=== PATIENT | female | born 1965 | race Caucasian/White ===

== ENCOUNTER → 2020-07-29 08:08 | Outpatient (CLI) | payer OTHER, SELFPAY ==
[2020-07-29] MEDS: COVID-19 VACC, Ad26(JANSSEN)/PF 0.5 ML IM (08:18)
== END ==
PROVIDERS: PCP Family Medicine; Visit Provider Internal Medicine
DX: Z23 Encounter for immunization (principal)
CPT/HCPCS: 0031A; 91303

== ENCOUNTER → 2021-01-26 09:13 | Outpatient (CLI) | payer OTHER, SELFPAY ==
[2021-01-26 10:20] LABS: Alanine Aminotransferase 20 IU/L (<35); Albumin 4.4 g/dL (3.5-5.0); Albumin Globulin Ratio 1.3 (1.0-2.8); Alkaline Phosphatase 84 U/L (38-126); Aspartate Aminotransferase 24 IU/L (14-36); BUN Creatinine Ratio 14.9 (6-22); Bilirubin Total 0.8 mg/dL (0.2-1.3); Blood Urea Nitrogen 13 mg/dL (7-17); Calcium 9.8 mg/dL (8.4-10.2); Carbon Dioxide 32 mmol/L (22-32); Chloride 100 mmol/L (98-107); Cholesterol 170 mg/dL (140-199); Estimated Glomerular Filt Rate > 60.0 mL/min (>60); Globulin 3.3 g/dL (1.7-4.1); Glucose 129 mg/dL (70-100); HDL Cholesterol 35 mg/dL (40-60); HEMOLYSIS < 15 (0-50); LDL Cholesterol Calculated 109 mg/dL (<100); Sodium 140 mmol/L (137-145); Total Protein 7.7 g/dL (6.3-8.2); Triglycerides 129 mg/dL (35-150)
[2021-01-26 10:31] LABS: Creatinine Urine Random 171.4 mg/dL
[2021-01-26 10:36] LABS: Microalbumi Creatinin Ratio Ur 22.1 ug/mg CR (<30); Microalbumin Urine Random 3.8 mg/dL (0-1.6)
[2021-01-26 10:47] LABS: Thyroid Stimulating Hormone 3.87 uIU/mL (0.47-4.68)
== END ==
PROVIDERS: PCP Family Medicine; Referring Provider Family Medicine; Visit Provider Family Medicine
DX: I10 Essential (primary) hypertension (principal); E03.9 Hypothyroidism, unspecified
CPT/HCPCS: 36415; 80053; 80061; 82043; 82570; 84443

== ENCOUNTER → 2023-02-02 14:42 | Outpatient (CLI) | payer OTHER, SELFPAY ==
--- NOTE | 2023-02-02 14:43 | DI.US.S_ITS ---
PROCEDURE: US PELVIC COMPLETE INDICATIONS: POSTMENOPAUSAL BLEEDING TECHNIQUE: Real-time scanning was performed of the pelvic organs, with image documentation. Additional endovaginal scanning was necessary due to incomplete visualization of the adnexal and endometrial structures by transabdominal scanning. COMPARISON: None. FINDINGS: Uterus: Uterus is anteverted and normal in size at 10.8 x 7.6 x 6.7 cm. The myometrium is homogeneous. The endometrium measures 26 mm combined thickness. Mid anterior intramural fibroid measuring at 0.9 x 0.7 x 0.5 cm. Mid anterior intramural fibroid measuring 1.9 x 1.9 x 1.9 cm. Small nabothian cysts. Ovaries: Ovaries are not seen. Other: No pathologic free abdominal or pelvic fluid. IMPRESSION: 1. Thickened endometrium measuring 26 mm. Recommend endometrial biopsy if not yet performed in this postmenopausal patient with bleeding. 2. Small uterine fibroids x2. We strive to produce accurate, complete, and clear reports of imaging services. To assist us in improving patient care, this report was composed using standard report templates and voice recognition software. Therefore, it may contain abnormal punctuation, insertions and/or omissions. Occasional wrong-word or sound-alike substitutions may occur. Though we review the report and make efforts to correct it, we do recommend that the report be read carefully in proper context to recognize any text inaccuracies. Dictated by: Sonu Lemons M.D. on 02/02/2023 at 16:11 Approved by: Sonu Lemons M.D. on 02/02/2023 at 16:21
== END ==
PROVIDERS: PCP Family Medicine; Referring Provider Family Medicine; Visit Provider Family Medicine
DX: N95.0 Postmenopausal bleeding (principal); D25.1 Intramural leiomyoma of uterus; R93.89 Abnormal findings on diagnostic imaging of other specified body structures
CPT/HCPCS: 76830; 76856

== ENCOUNTER → 2023-04-04 10:24 | Outpatient (CLI) | payer OTHER, SELFPAY ==
--- NOTE | 2023-04-04 | DI.CT.S_ITS ---
PROCEDURE: CT ANGIO CHEST PE PROTOCOL INDICATIONS: PULMONARY EMBOLISM/AFIB TECHNIQUE: After the administration of intravenous contrast, 2 mm thick sections acquired from the pulmonary apices to the posterior costophrenic angles. 3-dimensional maximum intensity projection (MIP) coronal and sagittal reformats were then acquired through the thorax. For radiation dose reduction, the following was used: automated exposure control, adjustment of mA and/or kV according to patient size. COMPARISON: [facility], CT, CT ANGIO CHEST PE, 03/09/2023, 8:23. FINDINGS: Image quality: Diagnostic. Pulmonary arteries: There was previous extensive PE, including large right main pulmonary artery embolus extending into the right upper lobe and right lower lobe and segmental right basilar pulmonary arteries, as well as mild distal left main pulmonary artery embolus extending into lower lobe basal segments. The right main pulmonary artery thrombus as not completely resolved. There is still occlusion of the right upper lobe pulmonary artery. The portion of the right main pulmonary artery which becomes the inter lobar pulmonary artery has recanalized. The inter lobar pulmonary artery and right lower lobe pulmonary artery are now patent. There is minimal right posterior basal segment nonocclusive pulmonary embolus. The left-sided pulmonary emboli have resolved. 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 There is a residual peripheral wedge-shaped filling defect present which is much smaller than the area of consolidation previously. The lungs are otherwise clear. No pleural effusions or pneumothorax. Central and peripheral airways are patent. Mediastinum: Borderline cardiomegaly, without pericardial effusion. No mediastinal or hilar adenopathy. Thoracic aorta is normal in caliber and enhancement. Esophagus is normal in caliber, without hiatal hernia. Bones and chest wall: No suspicious bony lesions. Ribs and thoracic spine appear intact throughout. No axillary or supraclavicular adenopathy. No thyroid nodules which require sonographic follow up, per consensus guidelines. Upper Abdomen: Visualized upper abdominal solid organs appear normal in the early arterial phase of enhancement. IMPRESSION: 1. Significant interval improvement in overall clot burden. There is continued right main pulmonary arterial clot which extends into the right upper lobe pulmonary artery, continuing to occlude the right upper lobe pulmonary artery. There is patency in the right main pulmonary artery regarding the portion that extends to become the right inter lobar pulmonary artery. The inter lobar pulmonary artery and lower lobe pulmonary arterial clot has resolved. There is minimal residual posterior basal segment pulmonary artery clot. The left-sided clot has resolved. 2. Significant interval decrease in size of which shaped consolidation in the right apex consistent with evolution of pulmonary infarct. Dictated by: Daryl Cruz M.D. on 04/04/2023 at 12:22 Approved by: Daryl Cruz M.D. on 04/04/2023 at 12:32
== END ==
PROVIDERS: PCP Family Medicine; Referring Provider Family Medicine; Visit Provider Family Medicine
DX: I26.02 Saddle embolus of pulmonary artery with acute cor pulmonale (principal); I48.19 Other persistent atrial fibrillation
CPT/HCPCS: 71275; Q9967

== ENCOUNTER 2023-04-05 14:35 | Emergency (ER) | payer OTHER, SELFPAY ==
[2023-04-05] VITALS (8 sets, daily range): BP systolic 102–125; BP diastolic 59–82; PULSE 95–115; RESP 24; TEMP 36.6; O2SAT 98–100; BMI 75.2
--- NOTE | 2023-04-05 15:18 | ED.FEMALEGU ---
HPI - Female Genitourinary General Chief complaint: Vaginal Bleeding Stated complaint: sent by [facility]/postmenopausal bleeding/low BP Time Seen by Provider: 04/05/23 15:05 Source: patient Mode of arrival: Wheelchair History of Present Illness HPI Narrative: 58-year-old female history of morbid obesity, recent diagnosis of bilateral pulmonary emboli, atrial fibrillation postmenopausal bleeding presenting today with increased fatigue and weakness. She was admitted at [facility] March 03 -03/11 with increasing weakness and nausea after COVID infection. She was found to have significant burden of pulmonary embolus involving all 5 lobes of her along and right heart strain. She was discharged home on warfarin and ultimately transitioned to Eliquis by Cardiology. She continues to have vaginal bleeding and reports she sometimes has clots excise but not all the time. She has had ongoing vaginal bleeding for months bleeding has gotten worse since she started anticoagulation. She is scheduled to have D and C and hysteroscopy tomorrow with Dr. Maddox. She is previously had an endometrial biopsy which was nondiagnostic. She was instructed to continue her Eliquis. She has not noticed significant increase in vaginal bleeding there has not been significant pain or change in regards to that. She actually reports that she has proving last week she is being followed by Physical therapy in fact they gave her more exercises to do. However this week she is just had increased fatigue and not feeling very well. She occasionally has some chest discomfort but not as bad as it was she is not having any worsening or new shortness of breath. She is not had any fever. Related Data Home Medications Medication Instructions Recorded Confirmed apixaban 5 mg tablet (Eliquis) 5 mg PO BID 04/03/23 04/03/23 furosemide 40 mg tablet 40 mg PO DAILY 04/03/23 04/03/23 metoprolol succinate 50 mg 50 mg PO DAILY 04/03/23 04/03/23 tablet,extended release 24 hr Previous Rx's Medication Instructions Recorded levothyroxine 112 mcg tablet See Rx Instructions .Route 01/16/23 .COMPLEX #90 tabs omeprazole 20 mg capsule,delayed See Rx Instructions .Route 01/16/23 release .COMPLEX #90 caps losartan 50 mg tablet See Rx Instructions .Route 04/02/23 .COMPLEX #90 tabs nitrofurantoin 100 mg PO Q12H 5 days #10 caps 12/14/23 monohydrate/macrocrystals 100 mg capsule (Macrobid) Allergies Allergy/AdvReac Type Severity Reaction Status Date / Time Penicillins [PENICILLINS] Allergy Unknown Verified 03/26/23 11:29 Patient History Medical History (Updated 04/05/23 @ 18:39 by Nicol Segal DO) BMI 70 and over, adult Multiple pulmonary emboli (03/03/23) Pre-diabetes Depression Essential hypertension (06/25/16) Acquired hypothyroidism (01/10/17) Surgical History (Updated 08/21/17 @ 06:09 by Conversion Provider) Status post tonsillectomy and adenoidectomy Family History (Updated 06/20/15 @ 00:00 by Conversion Provider) Brother Age: 71 Frontal lobe dementia Mental health problem Depression Father Heart disease Alcoholic Grandfather Cancer Mother Age: 90 Hypertension Sister Cancer alcohol intake frequency: holidays/special occasions only Substance Use Type: does not use Exam Initial Vital Signs Initial Vital Signs: Vital Signs Temperature 98 F 04/05/23 14:40 Pulse Rate 115 H 04/05/23 14:40 Respiratory Rate 24 04/05/23 14:40 Blood Pressure 125/82 04/05/23 14:40 Pulse Oximetry 100 04/05/23 14:40 Oxygen Delivery Method Room Air 04/05/23 14:40 GENERAL: Alert pleasant 58-year-old female BMI 75 HEENT: Head atraumatic,EOMI, pupils reactive, face symmetric, moist mucous membranes CARDIOVASCULAR: Regular rate and rhythm without murmurs, rubs or gallops. RESPIRATORY: Breath sounds equal bilaterally, no wheezes rales or rhonchi. ABDOMEN: Soft, nontender. Normoactive bowel sounds all 4 quadrants. No guarding or rebound. EXTREMITIES: Normal range of motion, no clubbing or edema. Neurovascularly intact NEUROLOGICAL: Alert and oriented x4.Normal gait and speech. SKIN: Warm, dry, no laceration, no petechiae, no rashes or lesions. Course Orders Ordered: ED Orders 04/05/23 15:15 Basic Metabolic Panel Stat Complete Blood Count AUTO DIFF Stat Lactate (Lactic Acid) Stat Type and Screen Stat 04/05/23 16:23 UA dip and micro [Urinalysis and Microscopic] Stat Urine Culture Stat 04/05/23 18:02 EKG-12 Lead Stat Discontinued Medications Sodium Chloride (Normal Saline 0.9%) 1,000 mls @ 1,000 mls/hr IV BOLUS ONE Stop: 04/05/23 18:30 Last Infusion: 04/05/23 18:51 Dose: Infused Documented By: Admin: 04/05/23 17:47 Dose: 1,000 mls/hr Documented By: RED Ceftriaxone Sodium 1,000 mg/ (Sodium Chloride) 100 mls @ 200 mls/hr IV NOW ONE Stop: 04/05/23 17:32 Last Infusion: 04/05/23 18:26 Dose: Infused Documented By: Admin: 04/05/23 17:47 Dose: 200 mls/hr Documented By: RED Vital Signs Vital signs: Vital Signs - 8 hr 04/05/23 14:40 04/05/23 15:42 04/05/23 15:42 Temperature 98 F Pulse Rate 115 H 96 H Respiratory Rate 24 Blood Pressure 125/82 110/66 Pulse Oximetry 100 99 Oxygen Delivery Method Room Air 04/05/23 16:00 04/05/23 16:00 04/05/23 16:30 Temperature Pulse Rate 95 H 106 H Respiratory Rate Blood Pressure 111/78 Pulse Oximetry 100 100 Oxygen Delivery Method 04/05/23 16:53 04/05/23 16:53 04/05/23 17:00 Temperature Pulse Rate 109 H 112 H Respiratory Rate Blood Pressure 116/69 Pulse Oximetry 98 100 Oxygen Delivery Method 04/05/23 17:30 04/05/23 18:52 Temperature Pulse Rate 95 H Respiratory Rate Blood Pressure 102/59 L Pulse Oximetry 100 Oxygen Delivery Method MDM - Female Genitourinary Lab Data 04/05/23 15:15 04/05/23 15:15 Labs: Lab Results 04/05/23 04/05/23 Range/Units 15:15 16:23 WBC 7.0 (4.5-11.0) X10^3/uL RBC 4.63 (4.0-5.2) X10^6/uL Hgb 13.4 (12.0-16.0) g/dL Hct 40.4 (36-46) % MCV 87.4 (80-100) fL MCH 28.9 (26-34) PG MCHC 33.1 (30-36) % RDW 16.0 H (11.6-14.8) % Plt Count 279 (150-400) X10^3/uL Neut % (Auto) 80.3 H (50-75) % Lymph % (Auto) 8.5 L (25-40) % Vigo % (Auto) 6.8 (3-14) % Eos % (Auto) 3.7 (2-4) % Baso % (Auto) 0.7 (0-2) % Neut # (Auto) 5600 (2752-8478) /uL Lymph # (Auto) 600 L (3476-6713) /uL Vigo # (Auto) 500 (0-900) /uL Eos # (Auto) 300 (0-450) /uL Baso # (Auto) 100 (0-100) /uL Sodium 135 L (137-145) mmol/L Potassium 3.3 L (3.4-5.1) mmol/L Chloride 101 (98-107) mmol/L Carbon Dioxide 24 (22-32) mmol/L BUN 12 (7-17) mg/dL Creatinine 0.82 (0.52-1.04) mg/dL Estimated GFR > 60 (>60) mL/min BUN/Creatinine Ratio 14.6 (6-22) Glucose 98 (70-100) mg/dL Lactate 2.0 (0.7-2.1) mmol/L Calcium 9.7 (8.4-10.2) mg/dL Urine Color Red Urine Appearance Cloudy Urine pH 7.0 (4.5-8.0) Ur Specific Adair <=1.005 (1.000-1.035) Urine Protein 2+ H (Negative) Urine Glucose (UA) Negative (Negative) g/dL Urine Ketones Negative (NEGATIVE) Urine Occult Blood 3+ H (Negative) Urine Nitrate Positive H (Negative) Urine Bilirubin 1+ H (NEGATIVE) Ur Bilirubin Confirm Cancelled Urine Urobilinogen 1.0 (0.2) E.U./dL Ur Leukocyte Esterase Trace H (NEGATIVE) Urine RBC >100/hpf H (0-5/HPF) Urine WBC 1-5/hpf (0-5/HPF) Ur Squamous Epith Cells 1-5 /hpf (0-5/HPF) Urine Bacteria Few (2-10) H (None) Ur Culture Indicated? Specimen cultured Blood Type A Positive Antibody Screen Negative ECG Data Interpretation: Atrial fibrillation no ST changes no priors to compare, rate 90 MDM Narrative Medical decision making narrative: Patient 58-year-old female with ongoing vaginal bleeding recently started on anticoagulation secondary to atrial fibrillation and pulmonary embolism presents today with increased fatigue weakness and dizziness. She does not report heavy vaginal bleeding but does have large clots times. Blood work reviewed no evidence of leukocytosis or anemia, she has mild hypokalemia 3.3 but no significant LUPE She reports that she is taking Lasix once daily she is not sure why. She had an echocardiogram when she was admitted at [facility] no one has taken her off Lasix. Though her blood work does not show dehydration she may be mildly dehydrated. She is found to have nitrates in her urine which may be contributing to her fatigue. How she ever she is afebrile without leukocytosis no sign of severe infection. She has chronic ongoing vaginal bleeding without significant increase in bleeding. She has a D&C hysteroscopy scheduled for tomorrow she is already had an endometrial biopsy. No need for any further pelvic ultrasound at this time. CT angio done yesterday shows improvement in overall burden. Discharge Plan Departure Patient Disposition: Home Clinical Impression: UTI (urinary tract infection) Instructions: DI for Urinary Tract Infection (UTI) Activity Restrictions/Additional Instructions: *You have been diagnosed with UTI *What to do: At this time no need for blood transfusion blood work is overall reassuring. *Continue to take medications as directed Macrobid 100 mg twice a day for 5 days--> [facility] *Follow up with your primary care provider in 2-3 days or call [phone] Follow-up with Dr. Maddox as scheduled tomorrow please follow instructions *Return to ER if you should have increasing dizziness chest pain palpitations passing or any new, worsening or concerning symptoms Prescriptions: New nitrofurantoin monohyd/m-cryst [Macrobid] 100 mg capsule 100 mg PO Q12H 5 Days Qty: 10 0RF Rx Instructions: must administer with a meal/food No Action levothyroxine 112 mcg tablet See Rx Instructions .ROUTE .COMPLEX Qty: 90 0RF Dose Instruction: take 1 tablet by mouth once daily Rx Instructions: take 1 tablet by mouth once daily omeprazole 20 mg capsule,delayed release(DR/EC) See Rx Instructions .ROUTE .COMPLEX Qty: 90 0RF Dose Instruction: take 1 capsule by mouth once daily Patient Comments: Pt states she takes PRN Rx Instructions: take 1 capsule by mouth once daily losartan 50 mg tablet See Rx Instructions .ROUTE .COMPLEX Qty: 90 0RF Dose Instruction: take 1 tablet by mouth once daily Rx Instructions: take 1 tablet by mouth once daily metoprolol succinate 50 mg Tablet Extended Release 24 Hr 50 mg PO DAILY Eliquis 5 mg Tablet 5 mg PO BID furosemide 40 mg Tablet 40 mg PO DAILY Referrals: Priya Gordon MD [Primary Care Provider] - Stand Alone Forms: Patient Portal/API
[2023-04-05 15:38] LABS: Add Manual Diff / Slide Review NO; Basophils Absolute Auto 100 /uL (0-100); Basophils Percent Auto 0.7 % (0-2); Eosinophils Absolute Auto 300 /uL (0-450); Eosinophils Percent Auto 3.7 % (2-4); Hematocrit 40.4 % (36-46); Hemoglobin 13.4 g/dL (12.0-16.0); Lymphocytes Absolute Auto 600 /uL (1100-4500); Lymphocytes Percent Auto 8.5 % (25-40); Mean Corpuscular HGB Conc 33.1 % (30-36); Mean Corpuscular Hemoglobin 28.9 PG (26-34); Mean Corpuscular Volume 87.4 fL (80-100); Monocytes Absolute Auto 500 /uL (0-900); Monocytes Percent Auto 6.8 % (3-14); Neutrophils Absolute Auto 5600 /uL (1500-7000); Neutrophils Percent Auto 80.3 % (50-75); Platelet Count 279 X10^3/uL (150-400); Red Blood Cell Count 4.63 X10^6/uL (4.0-5.2)
[2023-04-05 15:51] LABS: BUN Creatinine Ratio 14.6 (6-22); Blood Urea Nitrogen 12 mg/dL (7-17); Calcium 9.7 mg/dL (8.4-10.2); Carbon Dioxide 24 mmol/L (22-32); Chloride 101 mmol/L (98-107); Estimated Glomerular Filt Rate > 60 mL/min (>60); Glucose 98 mg/dL (70-100); HEMOLYSIS < 15 (0-50); Potassium 3.3 mmol/L (3.4-5.1); Sodium 135 mmol/L (137-145)
[2023-04-05 16:44] LABS: Appearance Urine UA CLOUDY; Color Urine UA RED; Glucose Urine UA NEGATIVE (Negative); Ketones Urine UA NEGATIVE (NEGATIVE); Leukocyte Esterase Urine UA TRACE (NEGATIVE); Nitrite Urine UA POSITIVE (Negative); Occult Blood Urine UA 3+ (Negative); Protein Urine UA 2+ (Negative); Specific Gravity Urine UA <=1.005 (1.000-1.035)
[2023-04-05 17:27] LABS: Bacteria Urine Few (2-10); Culture Indicated Urine Specimen Cultured; RBC Urine >100/HPF (0-5/HPF); Squamous Epithelial Cell Urine 1-5 /HPF (0-5/HPF); WBC Urine 1-5/HPF (0-5/HPF)
[2023-04-05 17:28] LABS: Bilirubin Urine UA 1+ (NEGATIVE)
[2023-04-05] MEDS: cefTRIAXone 1,000 MG in SODIUM CHLORIDE 0.9% 100 ML 200 MG IV (17:47)
[2023-04-05] MEDS: SODIUM CHLORIDE 0.9% 1,000 ML 1000 ML IV (17:47)
== END 2023-04-05 18:53 | disposition home or self-care (01) ==
PROVIDERS: Emergency Provider Emergency Medicine; PCP Family Medicine
DX: N39.0 Urinary tract infection, site not specified (principal); I48.91 Unspecified atrial fibrillation; Z79.01 Long term (current) use of anticoagulants
CPT/HCPCS: 36415; 80048; 81001; 83605; 85025; 86850; 86900; 86901; 87077; 87086; 87186; 93005; 93010; 96361; 96374; 99284; J0696

== ENCOUNTER 2023-04-06 09:54 | Day surgery (SDC) | payer OTHER, SELFPAY ==
[2023-04-03 10:46] VITALS: BMI 72.5
--- NOTE | 2023-04-06 | PATH_ITS ---
[facility] Accession Number: [id number] No. of containers..01 Tissue . 01 Material submitted: . endometrium - ENDOMETRIAL CURETTINGS . 01 Diagnosis: Endometrium, Curettage: Predominantly blood clot. Fragments of endometrial polyp. Few fragments of dyssynchronous endometrium (weakly proliferative with stromal condensation). Strips of benign endocervical and squamous epithelium also present. No neoplasm identified. MRV 04/17/2023 1428 Local . 01 Electronically signed: . Jesus Lai MD, PhD, Pathologist NPI- [id number] . 01 Gross description: . The specimen is received in formalin, labeled with the patient's name, , and endometrial curettings, and consists of multiple fragments of red-brown hemorrhagic material with minimal soft tissue grossly identified, aggregating to 6.2 x 3.7 x 3.2 cm. The specimen is filtered and submitted entirely in cassettes A1-A20. ([id number]) /FRR 04/11/2023 0407 Local . 01 Pathologist provided ICD-10: N95.0, N84.1 . 01 CPT . 213850 Specimen Comment: A courtesy copy of this report has been sent to [phone] Performed at: 01 [facility] [address] [place] [address] [address], [place], [place] [id number] MD Usman Carvalho MD Phone: [phone]
--- NOTE | 2023-04-06 08:04 | P.HPOB_ITS ---
History of Present Illness History of Present Illness Reason for admission: vaginal bleeding Narrative: Nat Whelan is a 58 year old female 1 para 1 who presents for a D&C. Patient has started bleeding in December. She had an ultrasound on February 02, 2023. This showed a 26 mm endometrial lining and 2 small fibroids. She was scheduled for a D&C. She then developed COVID. The surgery was postponed. She then had a PE in early February. Initially she was placed on warfarin. She was then switched to Eliquis and the bleeding became heavier. She was seen in the emergency department yesterday for feeling faint. They thought that she was dehydrated. Her hematocrit was 40. [facility] Medical History (Updated 04/05/23 @ 18:39 by Nicol Segal DO) BMI 70 and over, adult Multiple pulmonary emboli (03/03/23) Pre-diabetes Depression Essential hypertension (06/25/16) Acquired hypothyroidism (01/10/17) Surgical History (Updated 08/21/17 @ 06:09 by Conversion Provider) Status post tonsillectomy and adenoidectomy Family History (Updated 06/20/15 @ 00:00 by Conversion Provider) Brother Age: 71 Frontal lobe dementia Mental health problem Depression Father Heart disease Alcoholic Grandfather Cancer Mother Age: 90 Hypertension Sister Cancer Social History household members: spouse Smoking Status: Never smoker Meds Home Medications and Allergies Home Medications Medication Instructions Recorded Confirmed Type levothyroxine 112 mcg tablet See Rx Instructions .Route 01/16/23 04/03/23 Rx .COMPLEX #90 tabs omeprazole 20 mg capsule,delayed See Rx Instructions .Route 01/16/23 04/03/23 Rx release .COMPLEX #90 caps losartan 50 mg tablet See Rx Instructions .Route 04/02/23 04/03/23 Rx .COMPLEX #90 tabs apixaban 5 mg tablet (Eliquis) 5 mg PO BID 04/03/23 04/06/23 History furosemide 40 mg tablet 40 mg PO DAILY 04/03/23 04/03/23 History metoprolol succinate 50 mg 50 mg PO DAILY 04/03/23 04/03/23 History tablet,extended release 24 hr nitrofurantoin 100 mg PO Q12H 5 days #10 caps 04/05/23 Rx monohydrate/macrocrystals 100 mg capsule (Macrobid) Allergies Allergy/AdvReac Type Severity Reaction Status Date / Time Penicillins [PENICILLINS] Allergy Unknown Verified 04/06/23 10:28 Exam Narrative Exam Narrative: Generally: Morbidly obese female, sitting on the gurney, no acute distress. She does have oxygen per nasal cannula in place. Lungs: Clear to auscultation bilaterally Cardiovascular: Regular rate and rhythm Assessment & Plan Assessment & Plan narrative: Assessment: 58-year-old 1 para 1 with postmenopausal bleeding, worsened on Eliquis Active PE Plan: D&C under paracervical block and sedation The risks, benefits, and alternatives to the procedure were explained to the patient. The risks including bleeding, infection, and uterine perforation. She understands these risks and agrees to proceed. A full par Q was held and consent form was signed.
[2023-04-06 10:31] VITALS: BP 150/84; PULSE 112; RESP 16; TEMP 36.2; O2SAT 98; BMI 72.5
[2023-04-06] MEDS: LACTATED RINGERS 1,000 ML 42 ML IV (10:47)
--- NOTE | 2023-04-06 11:33 | PM.PREOP ---
Pre-operative Note Interval Note History & Physical reviewed/Exam performed by Physician: Yes Changes to H&P: No H&P completed within 30 days and has changed as indicated here:: 04/06/23
--- NOTE | 2023-04-06 11:57 | SUR.OPER ---
Lithotomy on padded OR bed, head on pillow, arms secured on padded arm boards at <90 degrees abduction. Legs secured in padded yellow fins stirrups. Table extenders used and foam wedge at torso per anesthesia.
[2023-04-06] MEDS: LIDOCAINE 1% 20 ML INJ (12:02)
--- NOTE | 2023-04-06 12:08 | P.OP_ITS ---
Operative Date/Time/Diagnoses Date of procedure: 04/06/23 Time of procedure: 12:08 Pre-op diagnosis: CHECKER DUMP GROUNDS bleeding Post-op diagnosis: same Procedure & Clinicians Procedure: Procedures Operation Date: 04/06/23 11:15 Actual Procedure Side Surgeon maegan Maddox MD Indications: 58 year old with CHECKER DUMP GROUNDS bleeding, worsening on blood thinners Patient changing a pad every hour 26 mm endometrial lining Active PE Surgeon: Nellie Maddox Anesthesia Type: Sedation and Other (Paracervical block) Operative Notes Findings: 10 wk size anteverted uterus Large amount of clot in the uterus Closure Type: not applicable Specimen(s): endometrial curettings Estimated blood loss (mL): 100 Blood products transfused: none Procedure in detail: after informed consent was obtained, the patient was taken to the operating room where she was placed in the dorsal supine position. She was then placed in the dorsal lithotomy position with elevated head, and prepped and draped in the usual sterile fashion. IV sedation was given. A bivalve speculum was placed into the vagina and the anterior lip of the cervix was grasped with a single- tooth tenaculum. a large amount of old clot came out of the cervical os. Using 10 cc of 1% lidocaine, a paracervical block was performed. The cervical os was dilated to the #8 Hegar dilator. The # 6 Plastic curette passed easily into the endometrial cavity. Several passes revealed minimal amount of blood. the curette was being blocked by large clots. The plastic curette was changed to the #10 curved curette. Several passes with suction revealed a large amount of clot and tissue. Gentle sharp curettage was performed yielding moderate amount of tissue. Several more passes with suction revealed small amount of blood only. The instruments were removed from the uterus. The single-tooth tenaculum was removed from the anterior lip of the cervix. The bivalve speculum was removed from the vagina. Sponge, lap, and instrument counts were correct x2. The patient tolerated the procedure well, and was taken to PACU in stable condition. Complications: none Post-operative Condition: stable Disposition: PACU Plan for aftercare: Home after recovery
[2023-04-06 12:11] VITALS: BP 89/53; PULSE 105; RESP 11; TEMP 36.6; O2SAT 100
[2023-04-06 12:15] VITALS: BP 96/62; PULSE 106; RESP 21; O2SAT 99
[2023-04-06 12:20] VITALS: BP 96/64; PULSE 103; RESP 15; O2SAT 98
[2023-04-06 12:30] VITALS: BP 103/69; PULSE 98; RESP 16; O2SAT 100
[2023-04-06 12:38] VITALS: BP 105/74; PULSE 105; RESP 16; O2SAT 97
== END 2023-04-06 12:45 | disposition home or self-care (01) ==
PROVIDERS: PCP Family Medicine; Referring Provider Obstetrics & Gynecology; Visit Provider Obstetrics & Gynecology
PROC: 0UDB8ZZ Extraction of Endometrium, Via Natural or Artificial Opening Endoscopic (ICD-10-PCS; CPT 58558; principal; 2023-04-06 11:15)
DX: N95.0 Postmenopausal bleeding (principal); N84.0 Polyp of corpus uteri
CPT/HCPCS: 58120; J2250

== ENCOUNTER → 2023-04-25 10:53 | Outpatient (CLI) | payer OTHER, SELFPAY ==
[2023-04-25 11:54] LABS: Appearance Urine UA CLEAR; Bilirubin Urine UA NEGATIVE (NEGATIVE); Color Urine UA YELLOW; Glucose Urine UA NEGATIVE (Negative); Ketones Urine UA NEGATIVE (NEGATIVE); Leukocyte Esterase Urine UA NEGATIVE (NEGATIVE); Nitrite Urine UA NEGATIVE (Negative); Occult Blood Urine UA 3+ (Negative); Protein Urine UA NEGATIVE (Negative); Urobilinogen Urine UA 0.2 E.U./dL (0.2)
[2023-04-25 11:58] LABS: pH Urine UA 5.5 (4.5-8.0)
[2023-04-25 11:59] LABS: Bacteria Urine None Seen; RBC Urine 5-10/HPF (0-5/HPF); Squamous Epithelial Cell Urine None Seen (0-5/HPF); WBC Urine None Seen (0-5/HPF)
[2023-04-25 12:00] LABS: Culture Indicated Urine Cult Not Indicated
[2023-04-25 12:01] LABS: Hemoglobin A1C% w Est Avg Glu 4.9 % (4.0-6.0)
[2023-04-25 12:13] LABS: Add Manual Diff / Slide Review NO; Basophils Absolute Auto 100 /uL (0-100); Eosinophils Absolute Auto 100 /uL (0-450); Eosinophils Percent Auto 2.1 % (2-4); Hemoglobin 12.8 g/dL (12.0-16.0); Lymphocytes Absolute Auto 1200 /uL (1100-4500); Lymphocytes Percent Auto 17.1 % (25-40); Mean Corpuscular HGB Conc 32.9 % (30-36); Mean Corpuscular Hemoglobin 28.7 PG (26-34); Mean Corpuscular Volume 87.5 fL (80-100); Monocytes Absolute Auto 500 /uL (0-900); Monocytes Percent Auto 7.3 % (3-14); Neutrophils Absolute Auto 5000 /uL (1500-7000); Neutrophils Percent Auto 72.5 % (50-75); Platelet Count 333 X10^3/uL (150-400); Red Blood Cell Count 4.46 X10^6/uL (4.0-5.2); Red Cell Distribution Width 16.2 % (11.6-14.8); White Blood Cell Count 6.9 X10^3/uL (4.5-11.0)
[2023-04-25 12:19] LABS: Alanine Aminotransferase 23 IU/L (<35); Albumin Globulin Ratio 1.1 (1.0-2.8); Alkaline Phosphatase 85 U/L (38-126); BUN Creatinine Ratio 12.5 (6-22); Bilirubin Total 1.3 mg/dL (0.2-1.3); Blood Urea Nitrogen 11 mg/dL (7-17); Carbon Dioxide 27 mmol/L (22-32); Chloride 101 mmol/L (98-107); Cholesterol 164 mg/dL (140-199); Estimated Glomerular Filt Rate > 60 mL/min (>60); Globulin 3.7 g/dL (1.7-4.1); Glucose 114 mg/dL (70-100); HDL Cholesterol 31 mg/dL (40-60); HEMOLYSIS < 15 (0-50); LDL Cholesterol Calculated 107 mg/dL (<100); Sodium 137 mmol/L (137-145); Total Protein 7.7 g/dL (6.3-8.2); Triglycerides 130 mg/dL (35-150)
[2023-04-25 13:00] LABS: TSH w/ Reflex to FT4 6.77 uIU/mL (0.47-4.68)
[2023-04-25 13:25] LABS: Free T4, Direct Thyroxine 1.85 ng/dL (0.78-2.19)
[2023-04-27 15:53] LABS: Aspartate Aminotransferase 32 IU/L (14-36)
== END ==
PROVIDERS: PCP Family Medicine; Referring Provider Family Medicine; Visit Provider Family Medicine
DX: R30.0 Dysuria (principal); I10 Essential (primary) hypertension; R73.03 Prediabetes; E05.90 Thyrotoxicosis, unspecified without thyrotoxic crisis or storm; N95.0 Postmenopausal bleeding
CPT/HCPCS: 36415; 80053; 80061; 81001; 83036; 84439; 84443; 85025

== ENCOUNTER → 2023-06-26 14:35 | Outpatient (CLI) | payer OTHER, SELFPAY ==
--- NOTE | 2023-06-26 14:36 | DI.CT.S_ITS ---
PROCEDURE: CT ANGIO CHEST PE PROTOCOL INDICATIONS: PE protocol TECHNIQUE: After the administration of intravenous contrast, 2 mm thick sections acquired from the pulmonary apices to the posterior costophrenic angles. 3-dimensional maximum intensity projection (MIP) coronal and sagittal reformats were then acquired through the thorax. For radiation dose reduction, the following was used: automated exposure control, adjustment of mA and/or kV according to patient size. COMPARISON: [facility], CT, CT ANGIO CHEST PE PROTOCOL, 04/04/2023, 11:16. FINDINGS: Image quality: Diagnostic. Pulmonary arteries: Previously, there is extensive pulmonary embolus. All prior pulmonary embolus has resolved. There is no acute clot present. The pulmonary tree is normal in caliber. Lower Neck: No enlarged lymph nodes. Thyroid: No thyroid nodules which require sonographic follow up, per consensus guidelines. Axillae: No enlarged lymph nodes. Chest Wall: Unremarkable. Bones: Unremarkable. Lungs and Pleura: No pneumothorax or pleural effusions. There is a wedge-shaped density present in the periphery of the right upper lobe which is decreased in size, and may represents an area of pulmonary infarct from previous episode. Vague ground-glass opacities bilaterally in a patchy distribution are of uncertain etiology. There is minimal bibasilar dependent change. Heart: Cardiomegaly has slightly increased. Thoracic Vessels: No aortic aneurysm. Mediastinum and Danelle: No enlarged lymph nodes. Esophagus: No wall thickening. No hiatal hernia. Upper Abdomen: Visualized upper abdomen solid organs and bowel loops appear normal. IMPRESSION: 1. Resolution of previous extensive pulmonary embolus. No acute pulmonary emboli present. 2. Slight interval increase in cardiomegaly. 3. Probable resolving pulmonary infarct in the right upper lobe. Dictated by: Daryl Cruz M.D. on 06/26/2023 at 16:42 Approved by: Daryl Cruz M.D. on 06/26/2023 at 16:51
== END ==
PROVIDERS: PCP Family Medicine; Referring Provider Family Medicine; Visit Provider Family Medicine
DX: I26.92 Saddle embolus of pulmonary artery without acute cor pulmonale (principal); I48.19 Other persistent atrial fibrillation; I51.7 Cardiomegaly
CPT/HCPCS: 71275; Q9967

== ENCOUNTER → 2023-06-29 15:14 | Outpatient (CLI) | payer OTHER, SELFPAY ==
[2023-06-29 17:39] LABS: Add Manual Diff / Slide Review NO; Basophils Absolute Auto 100 /uL (0-100); Basophils Percent Auto 1.2 % (0-2); Eosinophils Absolute Auto 100 /uL (0-450); Eosinophils Percent Auto 1.9 % (2-4); Hematocrit 38.6 % (36-46); Hemoglobin 12.7 g/dL (12.0-16.0); Lymphocytes Absolute Auto 1100 /uL (1100-4500); Lymphocytes Percent Auto 16.1 % (25-40); Mean Corpuscular HGB Conc 32.9 % (30-36); Mean Corpuscular Hemoglobin 27.4 PG (26-34); Mean Corpuscular Volume 83.3 fL (80-100); Monocytes Absolute Auto 500 /uL (0-900); Monocytes Percent Auto 6.8 % (3-14); Neutrophils Absolute Auto 5300 /uL (1500-7000); Platelet Count 350 X10^3/uL (150-400); Red Blood Cell Count 4.64 X10^6/uL (4.0-5.2); Red Cell Distribution Width 14.9 % (11.6-14.8); White Blood Cell Count 7.1 X10^3/uL (4.5-11.0)
[2023-06-29 18:23] LABS: Thyroid Stimulating Hormone 5.44 uIU/mL (0.47-4.68)
[2023-06-29 18:29] LABS: Ferritin 15 ng/mL (11-264)
== END ==
PROVIDERS: PCP Family Medicine; Referring Provider Family Medicine; Visit Provider Family Medicine
DX: L65.9 Nonscarring hair loss, unspecified (principal); E03.9 Hypothyroidism, unspecified
CPT/HCPCS: 36415; 82728; 84443; 85025

== ENCOUNTER 2023-07-02 07:50 | Day surgery (SDC) | payer OTHER, SELFPAY ==
[2023-06-28 08:40] VITALS: BMI 71.2
--- NOTE | 2023-07-02 | PATH_ITS ---
[facility] Accession Number: [id number] No. of containers..01 Tissue . 01 Material submitted: . endometrium - ENDOMETRIAL CURETTINGS . 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 Please see comment. MRV 07/10/2023 1620 Local . 01 Comment: The focus of atypical hyperplasia / endometrioid intraepithelial neoplasia measures approximately 3 mm; background fragments of benign polyp are also present. . As part of routine quality worker, this case was also reviewed by Dr. Geiger, who agrees with the interpretation. . 01 Electronically signed: . Cassidy Whyte MD, Pathologist NPI- [id number] . 01 Gross description: . ENDOMETRIAL CURETTINGS: Received in formalin are minute fragments of mucoid and hemorrhagic material measuring 1.5 x 1.5 x 0.2 cm in aggregate. Submitted in toto in 1 cassette. /HECTOR 07/03/2023 2322 Local . 01 Pathologist provided ICD-10: N85.00 . 01 CPT . 565785 Specimen Comment: A courtesy copy of this report has been sent to [phone] Performed at: 01 [facility] [address] [place] [address] [address] [facility], [place], [place] [id number] MD Usman Carvalho MD Phone: [phone]
[2023-07-02 09:23] VITALS: BMI 68.8
[2023-07-02] MEDS: LACTATED RINGERS 1,000 ML 21 ML IV (09:23)
[2023-07-02 09:43] VITALS: BP 112/72; PULSE 87; RESP 16; TEMP 36.2; O2SAT 99
--- NOTE | 2023-07-02 10:44 | P.HPOB_ITS ---
History of Present Illness History of Present Illness Reason for admission: vaginal bleeding Narrative: Nat Whelan is a 58 year old female 1 para 1 with AFib who is on Eliquis. She is having significant vaginal bleeding on the Eliquis. She presents today for a D&C hysteroscopy with NovaSure endometrial ablation. She stopped the Eliquis 3 days ago. [facility] Medical History (Updated 06/17/23 @ 21:53 by Nellie Maddox MD) BMI 70 and over, adult Multiple pulmonary emboli (03/03/23) Pre-diabetes Depression Essential hypertension (06/25/16) Acquired hypothyroidism (01/10/17) Surgical History (Updated 06/28/23 @ 08:47 by Caridad Rodríguez RN) Hx of dilation and curettage (04/06/23) Status post tonsillectomy and adenoidectomy Family History (Updated 06/20/15 @ 00:00 by Conversion Provider) Brother Age: 72 Frontal lobe dementia Mental health problem Depression Father Heart disease Alcoholic Grandfather Cancer Mother Age: 91 Hypertension Sister Cancer Social History household members: spouse Smoking Status: Never smoker alcohol intake: current Meds Home Medications and Allergies Home Medications Medication Instructions Recorded Confirmed Type omeprazole 20 mg capsule,delayed See Rx Instructions .Route 01/16/23 07/02/23 Rx release .COMPLEX #90 caps apixaban 5 mg tablet (Eliquis) 5 mg PO BID 04/03/23 07/02/23 History furosemide 40 mg tablet 40 mg PO DAILY 04/03/23 07/02/23 History levothyroxine 112 mcg tablet 112 mcg PO DAILY #90 tabs 04/10/23 07/02/23 Rx nystatin 100,000 unit/gram topical 1 applic topical DAILY #60 grams 05/16/23 07/02/23 Rx powder ([facility]) losartan 50 mg tablet 50 mg PO DAILY #90 tabs 06/20/23 07/02/23 Rx diltiazem HCl 240 mg capsule,24 240 mg PO DAILY #90 caps 06/29/23 07/02/23 Rx hr,extended release Allergies Allergy/AdvReac Type Severity Reaction Status Date / Time Penicillins [PENICILLINS] Allergy Unknown Verified 07/02/23 09:21 Exam Vital Signs (past 8 hours): - 07/02/23 09:43 Temperature 97.1 F L Pulse Rate 87 Respiratory Rate 16 Blood Pressure 112/72 Pulse Oximetry 99 Oxygen Delivery Method Room Air Oxygen Delivery Method Room Air Narrative Exam Narrative: HEENT: No thyromegaly, no anterior cervical or supraclavicular lymphadenopathy. Lungs:Clear to auscultation bilaterally, no wheezes. Cardiovascular: Regular rate and rhythm, no murmurs, rubs, or gallops. Abdomen: No scars. No hepatosplenomegaly. No masses palpable. External genitalia: Normal Vagina: Normal Cervix: Normal Bimanual exam: 7 Week size anteverted uterus. Mobile. Extremities: Trace edema Assessment & Plan Assessment & Plan narrative: Assessment: 58-year-old 1 para 1 with postmenopausal bleeding on Eliquis for AFib Previous biopsy negative Plan: D&C hysteroscopy with NovaSure ablation The risks, benefits, and alternatives to the procedure were explained to the patient. The risks including bleeding, infection, and uterine perforation. She understands these risks and agrees to proceed. A full par Q was held and consent form was signed.
--- NOTE | 2023-07-02 10:46 | PM.PREOP ---
Pre-operative Note Interval Note History & Physical reviewed/Exam performed by Physician: Yes Changes to H&P: No H&P completed within 30 days and has changed as indicated here:: 07/02/23
--- NOTE | 2023-07-02 11:42 | SUR.OPER ---
Lithotomy on padded OR bed. Urania Pad Positioner under torso. Head on pillow, arms padded and ON ARMBOARDS AT 45 DEGREES.. Legs secured in padded yellow fins stirrups.
--- NOTE | 2023-07-02 12:02 | PM.GYNOP.1 ---
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 Procedure & Clinicians Procedure: Procedures Operation Date: 07/02/23 09:45 Actual Procedure Side Surgeon p D&C Hysteroscopy w/ Novasure Ablation (myosure) Not Applicable Nellie Maddox MD Indications: Postmenopausal bleeding on Eliquis Surgeon: Nellie Maddox Anesthesia Type: General Operative Notes Findings: 8 week size anteverted uterus A few small polyps in the lower uterine segment Small fibroid originating from the fundus of the uterus Both fallopian tube ostia observed Closure Type: not applicable Specimen(s): endometrial curettings Estimated blood loss (mL): 20 Blood products transfused: none Procedure in detail: After informed consent was obtained, the patient was taken to the operating room where she was placed in the dorsal supine position. After adequate general endotracheal anesthesia was achieved, she was placed in the dorsal lithotomy position, and prepped and draped in the usual sterile fashion. A bivalve speculum was placed into the vagina and the anterior lip of the cervix was grasped with a single-tooth tenaculum. The cervical os was dilated to the #8 Hegar dilator. The MyoSure was primed. The MyoSure hysteroscope passed easily into the endometrial cavity. Initial inspection showed both fallopian tube ostia. There was some polypoid tissue in the lower uterine segment. There was a fibroid originating from the fundus of the uterus. These were resected with the MyoSure. The MyoSure was then removed. The uterus was measured from the internal os to the fundus and measured 6.5 cm. This was set on the NovaSure catheter and the generator. The NovaSure catheter passed easily into the endometrial cavity and was opened. The width of the uterus was 3 cm. This indicated a power of 107 w. The cervix was capped, the cavity assessment was performed and passed. The ablation time was 37 seconds. At the completion of the cycle the cervix was uncapped, the NovaSure catheter was closed and removed from the uterus. A single-tooth tenaculum was removed from the anterior lip of the cervix. Length of the uterus 6.5 cm. Width of the uterus 3 cm. Power 107 w. Time 37 seconds. Cut time 31 seconds. Sponge, lap, and instrument counts were correct x2. The patient tolerated the procedure well, and was taken to PACU in stable condition. Complications: none Post-operative Condition: stable Disposition: PACU Plan for aftercare: Home after recovery
[2023-07-02 12:07] VITALS: BP 124/87; PULSE 89; RESP 15; TEMP 36.6; O2SAT 98
[2023-07-02 12:12] VITALS: BP 141/74; PULSE 89; RESP 16; O2SAT 97
[2023-07-02 12:17] VITALS: BP 106/41; PULSE 80; RESP 15; O2SAT 100
[2023-07-02 12:23] VITALS: BP 100/59; PULSE 76; RESP 16; TEMP 36.6; O2SAT 97
[2023-07-02 12:54] VITALS: BP 118/63; PULSE 76; RESP 16; TEMP 36.1; O2SAT 97
[2023-07-02] MEDS: ACETAMINOPHEN 325 MG TABLET 650 MG PO (13:05)
--- NOTE | 2023-07-02 13:16 | SUR.PHASEII ---
see verified verbal order from Dr Mast for tylenol
== END 2023-07-02 13:08 | disposition home or self-care (01) ==
PROVIDERS: PCP Family Medicine; Referring Provider Obstetrics & Gynecology; Visit Provider Obstetrics & Gynecology
PROC: 0U5B8ZZ Destruction of Endometrium, Via Natural or Artificial Opening Endoscopic (ICD-10-PCS; CPT 58563; principal; 2023-07-02 09:45)
DX: N95.0 Postmenopausal bleeding (principal); N85.00 Endometrial hyperplasia, unspecified
CPT/HCPCS: 58561; 58563; J1885; J2405; J2704; J3010

== ENCOUNTER → 2023-08-16 15:49 | Outpatient (CLI) | payer OTHER, SELFPAY ==
[2023-08-16 18:54] LABS: TSH w/ Reflex to FT4 3.07 uIU/mL (0.47-4.68)
== END ==
PROVIDERS: PCP Family Medicine; Referring Provider Family Medicine; Visit Provider Family Medicine
DX: E03.9 Hypothyroidism, unspecified (principal)
CPT/HCPCS: 36415; 84443

== ENCOUNTER → 2023-09-10 10:17 | Outpatient (CLI) | payer OTHER, SELFPAY ==
--- NOTE | 2023-09-10 10:17 | DI.ECHO.S_ITS ---
[facility]---------+ [facility] : : [address] : : [place] : : [address] : : Phone: [phone] Echocardiogram Report + + :Name: EFRAIN HENRIQUEZ Study Date: 09/10/2023 Height: 64 in : :Hospital ReadingLocation: Weight: 389 lb: : Gender: Female BSA: 2.6 m2 : :: 1965 Age: 58 yrs : :Reason For Study: EDEMA : :Ordering Physician: SHASHI, : :LC Performed By: Herbert Phelps : :Referring: LC DANIELLE : + + Interpretation Summary Normal left ventricle size with ejection fraction 60-65%. Moderate biatrial enlargement. Moderate mitral regurgitation, eccentrically directed. Mild to moderate tricuspid regurgitation. The right ventricular systolic pressure is estimated to be at least 47 mmHg based on an estimated right atrial pressure of 8 mm Hg. Comparison is made with the echocardiogram of 03/05/2023, mitral regurgitation has worsen slightly. Procedure: A two-dimensional transthoracic echocardiogram with color flow and Doppler was performed. The study quality was technically adequate. Comparison is made with the echocardiogram of 03/05/2023. The patient was in atrial fibrillation with heart rates between 74-98 bpm during the exam. Left Ventricle: The left ventricle is normal in size and wall thickness. The ejection fraction is estimated to be 60-65%. There are no focal wall motion abnormalities. Diastolic function could not be accurately assessed due to confounding valvular disease. Right Ventricle: The right ventricle is normal in size and function. Atria: There is moderate biatrial enlargement. The interatrial septum grossly appears intact with no obvious evidence for an atrial septal defect. Mitral Valve: The mitral valve is grossly normal. There is no mitral valve stenosis. There is moderate mitral regurgitation. The mitral regurgitant jet is eccentrically directed. Aortic Valve: The aortic valve is trileaflet. The aortic valve opens well. There is no aortic valve stenosis. No aortic regurgitation is present. Tricuspid Valve: The tricuspid valve is not well visualized, but is grossly normal. There is no tricuspid stenosis. There is mild to moderate tricuspid regurgitation. The right ventricular systolic pressure is estimated to be at least 47 mmHg based on an estimated right atrial pressure of 8 mm Hg. Pulmonic Valve: The pulmonic valve is not well visualized. There is no pulmonic valvular stenosis. There is no pulmonic valvular regurgitation. Great Vessels: The aortic root is normal size. The dimensions of the ascending aorta are normal. The IVC is dilated (diameter is greater than 2.1 cm) yet it collapses greater than 50% with a sniff. This suggests a right atrial pressure of 8 mm Hg. Pericardium/ Pleura There is no pericardial effusion. There is no pleural effusion. MMode/2D Measurements & Calculations LVIDd: 5.5 cm LVOT diam: 2.0 cm LVIDs: 3.8 cm Ao root diam: 3.1 cm FS: 30.7 % Ao Arch Diam (Prox Trans): 2.2 cm IVSd: 0.92 cm LVPWd: 0.91 cm LV clarke. diameter/BSA (cm/m^2): 2.1 LV sys. diameter/BSA (cm/m^2): 1.5 LA A2 area: 33.6 cm2 RA long axis: 7.2 cm LA A4 area: 27.0 cm2 RA area: 26.0 cm2 LA length (vol): 6.7 cm RA vol: 79.8 ml LA vol: 114.8 ml RA : 30.7 ml/m2 LA vol index: 44.2 ml/m2 IVC diam: 2.3 cm RVD1 (basal): 3.7 cm RVD2 (mid): 3.2 cm TAPSE: 1.8 cm Doppler Measurements & Calculations Ao V2 max: 154.4 cm/sec LVOT Max Kit: 121.3 cm/sec Ao V2 mean: 113.7 cm/sec LV V1 max P.9 mmHg Ao max P.6 mmHg LV V1 VTI: 25.7 cm Ao mean P.6 mmHg NIMO(I,D): 2.4 cm2 Ao V2 VTI: 32.6 cm NIMO(V,D): 2.4 cm2 sev ratio: 0.79 NIMO indexed to BSA (cm^2/m^2): 0.92 MV E max kit: 151.6 cm/sec TR max kit: 313.5 cm/sec MV A max kit: 12.2 cm/sec TR max P.3 mmHg MV E/A: 12.4 PA V2 max: 86.1 cm/sec Med Peak E' Kit: 10.2 cm/sec PA V2 mean: 64.4 cm/sec E/E' med: 14.9 PA mean P.8 mmHg Lat Peak E' Kit: 14.6 cm/sec PA pr(Accel): 18.5 mmHg E/E' lat: 10.4 E/e' average: 12.7 MV dec time: 0.13 sec SV(LVOT): 78.0 ml Electronically signed by: Rey fitzgerald Nolan Physician:09/10/2023 12:19 PM
== END ==
PROVIDERS: PCP Family Medicine; Referring Provider Family Medicine; Visit Provider Family Medicine
DX: I08.1 Rheumatic disorders of both mitral and tricuspid valves (principal); R60.9 Edema, unspecified
CPT/HCPCS: 93306

== ENCOUNTER → 2023-10-09 17:34 | Outpatient (CLI) | payer OTHER, SELFPAY ==
[2023-10-09 18:02] LABS: Add Manual Diff / Slide Review NO; Basophils Absolute Auto 100 /uL (0-100); Basophils Percent Auto 0.7 % (0-2); Eosinophils Absolute Auto 200 /uL (0-450); Eosinophils Percent Auto 1.9 % (2-4); Hematocrit 35.4 % (36-46); Hemoglobin 11.4 g/dL (12.0-16.0); Lymphocytes Absolute Auto 1700 /uL (1100-4500); Lymphocytes Percent Auto 20.9 % (25-40); Mean Corpuscular HGB Conc 32.1 % (30-36); Mean Corpuscular Hemoglobin 24.5 PG (26-34); Mean Corpuscular Volume 76.4 fL (80-100); Monocytes Absolute Auto 700 /uL (0-900); Monocytes Percent Auto 8.8 % (3-14); Neutrophils Absolute Auto 5600 /uL (1500-7000); Neutrophils Percent Auto 67.7 % (50-75); Platelet Count 369 X10^3/uL (150-400); Red Blood Cell Count 4.63 X10^6/uL (4.0-5.2); Red Cell Distribution Width 18.2 % (11.6-14.8); White Blood Cell Count 8.3 X10^3/uL (4.5-11.0)
[2023-10-09 18:22] LABS: INR 1.5 (0.9-1.3); Prothrombin Time 17.7 SECONDS (9.4-12.5)
[2023-10-09 18:25] LABS: PTT Partial Thromboplastin Tim 38 SECONDS (25.1-36.5)
[2023-10-09 18:26] LABS: Alanine Aminotransferase 15 IU/L (<35); Albumin Globulin Ratio 1.3 (1.0-2.8); Alkaline Phosphatase 95 U/L (38-126); Aspartate Aminotransferase 24 IU/L (14-36); BUN Creatinine Ratio 15.2 (6-22); Bilirubin Total 0.8 mg/dL (0.2-1.3); Blood Urea Nitrogen 12 mg/dL (7-17); Calcium 9.4 mg/dL (8.4-10.2); Carbon Dioxide 28 mmol/L (22-32); Chloride 105 mmol/L (98-107); Estimated Glomerular Filt Rate > 60 mL/min (>60); Globulin 3.1 g/dL (1.7-4.1); Glucose 85 mg/dL (70-100); HEMOLYSIS < 15 (0-50); Potassium 4.8 mmol/L (3.4-5.1); Sodium 140 mmol/L (137-145); Total Protein 7.1 g/dL (6.3-8.2)
== END ==
PROVIDERS: PCP Family Medicine; Referring Provider Family Medicine; Visit Provider Family Medicine
DX: Z01.818 Encounter for other preprocedural examination (principal); Z01.812 Encounter for preprocedural laboratory examination
CPT/HCPCS: 36415; 80053; 85025; 85610; 85730

== ENCOUNTER → 2023-10-23 17:40 | Outpatient (CLI) | payer OTHER, SELFPAY ==
[2023-10-23 18:23] LABS: Add Manual Diff / Slide Review NO; Basophils Absolute Auto 100 /uL (0-100); Basophils Percent Auto 0.7 % (0-2); Eosinophils Absolute Auto 100 /uL (0-450); Eosinophils Percent Auto 1.8 % (2-4); Hemoglobin 11.4 g/dL (12.0-16.0); Lymphocytes Absolute Auto 1700 /uL (1100-4500); Lymphocytes Percent Auto 21.4 % (25-40); Mean Corpuscular HGB Conc 31.8 % (30-36); Mean Corpuscular Hemoglobin 24.1 PG (26-34); Mean Corpuscular Volume 75.7 fL (80-100); Monocytes Absolute Auto 800 /uL (0-900); Monocytes Percent Auto 9.7 % (3-14); Neutrophils Absolute Auto 5400 /uL (1500-7000); Neutrophils Percent Auto 66.4 % (50-75); Platelet Count 350 X10^3/uL (150-400); Red Blood Cell Count 4.75 X10^6/uL (4.0-5.2); Red Cell Distribution Width 18.5 % (11.6-14.8); White Blood Cell Count 8.1 X10^3/uL (4.5-11.0)
[2023-10-23 18:45] LABS: HEMOLYSIS < 15 (0-50); Iron 44 ug/dL (37-170)
[2023-10-23 18:55] LABS: Percent Iron Saturation 12 % (15-50); Total Iron Binding Capacity 355 ug/dL (265-497); Transferrin 268 mg/dL (206-381)
== END ==
PROVIDERS: PCP Family Medicine; Referring Provider Family Medicine; Visit Provider Family Medicine
DX: R71.0 Precipitous drop in hematocrit (principal); R71.8 Other abnormality of red blood cells; N95.0 Postmenopausal bleeding; D64.9 Anemia, unspecified
CPT/HCPCS: 36415; 83540; 83550; 85025

== ENCOUNTER → 2024-03-04 15:03 | Outpatient (CLI) | payer OTHER, SELFPAY ==
--- NOTE | 2024-03-04 15:04 | DI.US.S_ITS ---
PROCEDURE: US PERIPH VENOUS LOW EXTREM LT INDICATIONS: swelling TECHNIQUE: Real-time imaging, as well as color and pulse Doppler interrogation, were performed of the lower extremity deep veins from the inguinal ligament to the popliteal fossa, with documentation of the visualized calf veins. COMPARISON: None. FINDINGS: The saphenofemoral junction and common femoral veins are free of intraluminal thrombus. Color and pulse Doppler demonstrate normal phasic intraluminal flow. There is normal augmentation response to distal compression maneuver. The femoral vein is partially compressible. There is only partial filling of the profundal vein. Distal femoral vein is not well seen. The popliteal and calf veins are not well seen. IMPRESSION: Positive for DVT. Thrombus is seen in the profundus vein and femoral vein. Dictated by: Sonu Lemons M.D. on 03/04/2024 at 21:07 Approved by: Sonu Lemons M.D. on 03/04/2024 at 21:14
== END ==
PROVIDERS: PCP Family Medicine; Referring Provider Family Medicine; Visit Provider Family Medicine
DX: I82.412 Acute embolism and thrombosis of left femoral vein (principal); I82.492 Acute embolism and thrombosis of other specified deep vein of left lower extremity; R60.9 Edema, unspecified
CPT/HCPCS: 93971

== ENCOUNTER 2024-03-04 16:23 | Emergency (ER) | payer OTHER, SELFPAY ==
[2024-03-04 16:30] VITALS: BP 172/100; PULSE 90; RESP 16; TEMP 36.9; O2SAT 100; BMI 54.9
--- NOTE | 2024-03-04 17:33 | DI.CT.S_ITS ---
PROCEDURE: CT ANGIO CHEST PE PROTOCOL INDICATIONS: history of PE's, has DVT in left leg, on eliquis TECHNIQUE: After the administration of intravenous contrast, 2 mm thick sections acquired from the pulmonary apices to the posterior costophrenic angles. 3-dimensional maximum intensity projection (MIP) coronal and sagittal reformats were then acquired through the thorax. For radiation dose reduction, the following was used: automated exposure control, adjustment of mA and/or kV according to patient size. COMPARISON: [facility], CT, CT ANGIO CHEST PE, 03/03/2023, 18:41. [facility], CT, CT ANGIO CHEST PE PROTOCOL, 06/26/2023, 15:18. FINDINGS: Image quality: Diagnostic. Pulmonary arteries: Pulmonary arteries are normal in size, and demonstrate no intraluminal filling defects to suggest central pulmonary embolism. Lower Neck: No enlarged lymph nodes. Thyroid: No thyroid nodules which require sonographic follow up, per consensus guidelines. Axillae: No enlarged lymph nodes. Chest Wall: Unremarkable. Bones: Unremarkable. Lungs and Pleura: No pneumothorax or pleural effusions. No consolidation or suspicious nodules. Benign-appearing 5 mm pleural based pulmonary nodule, left lung base, current image 195 of series 5. However, it is slightly greater than on the initial study of 03/03/2023, where it measured approximately 4 mm. Heart: Cardiomegaly. No pericardial effusion. Thoracic Vessels: No aortic aneurysm. Mediastinum and Adnelle: No enlarged lymph nodes. Esophagus: No wall thickening. No hiatal hernia. Upper Abdomen: Visualized upper abdomen solid organs and bowel loops appear normal. IMPRESSION: 1. No recurrent pulmonary emboli. 2. Mild cardiomegaly, as before. 3. Slight interval increase in a pleural based pulmonary nodule, left lung base, 5 mm. Comment: Recommend follow-up CT chest in 12 months. Dictated by: Daryl Cruz M.D. on 03/04/2024 at 18:14 Approved by: Daryl Cruz M.D. on 03/04/2024 at 18:19
[2024-03-04 17:35] LABS: Add Manual Diff / Slide Review NO; Basophils Absolute Auto 100 /uL (0-100); Basophils Percent Auto 1.3 % (0-2); Eosinophils Absolute Auto 100 /uL (0-450); Eosinophils Percent Auto 1.3 % (2-4); Hematocrit 40.9 % (36-46); Hemoglobin 13.4 g/dL (12.0-16.0); Lymphocytes Absolute Auto 1700 /uL (1100-4500); Lymphocytes Percent Auto 22.3 % (25-40); Mean Corpuscular HGB Conc 32.7 % (30-36); Mean Corpuscular Hemoglobin 27.1 PG (26-34); Mean Corpuscular Volume 82.9 fL (80-100); Monocytes Absolute Auto 600 /uL (0-900); Monocytes Percent Auto 7.2 % (3-14); Neutrophils Absolute Auto 5300 /uL (1500-7000); Neutrophils Percent Auto 67.9 % (50-75); Platelet Count 281 X10^3/uL (150-400); Red Blood Cell Count 4.94 X10^6/uL (4.0-5.2); Red Cell Distribution Width 17.1 % (11.6-14.8); White Blood Cell Count 7.8 X10^3/uL (4.5-11.0)
[2024-03-04 17:43] LABS: INR 1.6 (0.9-1.3); Prothrombin Time 17.8 SECONDS (9.4-12.5)
[2024-03-04 17:46] LABS: PTT Partial Thromboplastin Tim 40 SECONDS (25.1-36.5)
[2024-03-04 17:47] LABS: Alanine Aminotransferase 20 IU/L (<35); Albumin 4.2 g/dL (3.5-5.0); Albumin Globulin Ratio 1.1 (1.0-2.8); Alkaline Phosphatase 99 U/L (38-126); Aspartate Aminotransferase 29 IU/L (14-36); BUN Creatinine Ratio 16.5 (6-22); Blood Urea Nitrogen 14 mg/dL (7-17); Calcium 9.6 mg/dL (8.4-10.2); Carbon Dioxide 29 mmol/L (22-32); Chloride 102 mmol/L (98-107); Estimated Glomerular Filt Rate > 60 mL/min (>60); Globulin 3.7 g/dL (1.7-4.1); Glucose 97 mg/dL (80-110); HEMOLYSIS < 15 (0-50); Potassium 3.7 mmol/L (3.4-5.1); Sodium 136 mmol/L (137-145); Total Protein 7.9 g/dL (6.3-8.2)
--- NOTE | 2024-03-04 20:14 | ED_ITS ---
HPI - Recheck/Abnormal Lab/Rx General Chief Complaint: Recheck/Abnormal Lab/Rx Stated Complaint: sent by PCP for deep vein trombosis, US 45 mins ag Time Seen by Provider: 03/04/24 19:47 Source: patient Mode of arrival: Ambulatory History of Present Illness HPI narrative: 59-year-old female with history of pulmonary embolism in 2022 on Eliquis, atrial fibrillation presents by private vehicle for evaluation of possible pulmonary embolus. Several days ago the patient noticed a firm spot on her left inner calf. She brought this up to her primary care doctor, who ordered an ultrasound for assessment. The biological technician noted a left-sided DVT, and after discussing with her primary care doctor the patient was referred to the emergency department to rule out PE. Patient reports compliance with her Eliquis and states that she is extremely vigilant about not missing any doses. She denies any chest pain, shortness of breath, fatigue, weakness. She states that since her PE 1 year ago she has been very active and has lost almost 150 lb. Related Data Home Medications Medication Instructions Recorded Confirmed apixaban 5 mg tablet (Eliquis) 5 mg PO BID 04/03/23 02/26/24 furosemide 40 mg tablet 40 mg PO DAILY 04/03/23 02/26/24 carvedilol 6.25 mg tablet 6.25 mg PO BID 10/05/23 02/26/24 Previous Rx's Medication Instructions Recorded omeprazole 20 mg capsule,delayed See Rx Instructions .Route 01/16/23 release .COMPLEX #90 caps nystatin 100,000 unit/gram topical 1 applic topical DAILY #60 grams 11/02/23 powder ([facility]) levothyroxine 125 mcg tablet 125 mcg PO DAILY #90 tabs 12/19/23 nystatin 100,000 unit/gram topical 1 applic topical BID #15 grams 02/26/24 ointment apixaban 5 mg tablet (Eliquis) 10 mg (2 x 5 mg) PO BID #28 tabs 03/04/24 rivaroxaban 20 mg tablet (Xarelto) 20 mg PO DAILY #60 tabs 03/04/24 Allergies Allergy/AdvReac Type Severity Reaction Status Date / Time Penicillins [PENICILLINS] Allergy Unknown Verified 03/04/24 16:35 Patient History Medical History BMI 70 and over, adult Multiple pulmonary emboli (03/03/23) Pre-diabetes Depression Essential hypertension (06/25/16) Acquired hypothyroidism (01/10/17) Surgical History Hx of dilation and curettage (04/06/23) Status post tonsillectomy and adenoidectomy Family History Brother Age: 72 Frontal lobe dementia Mental health problem Depression Father Heart disease Alcoholic Grandfather Cancer Mother Age: 91 Hypertension Sister Cancer Social History household members: spouse Smoking Status: Never smoker alcohol intake: current Smoking Status: Never smoker alcohol intake frequency: a few times a week Substance Use Type: does not use Exam Initial Vital Signs Initial Vital Signs: Vital Signs Temperature 98.5 F 03/04/24 16:30 Pulse Rate 90 03/04/24 16:30 Respiratory Rate 16 03/04/24 16:30 Blood Pressure 172/100 H 03/04/24 16:30 Pulse Oximetry 100 03/04/24 16:30 Oxygen Delivery Method Room Air 03/04/24 16:30 Const: Awake, alert, no acute distress, nontoxic appearing Cardiac: regular rate, regular rhythm RESP: unlabored, clear bilaterally, no wheezing GI: Soft, nontender, nondistended, no rebound, no guarding MSK: Lymphedema bilateral lower extremities Skin: Warm, Dry, intact, no rashes Neuro: AO x3, CN II-XII grossly intact, moves all extremities Course Orders Ordered: ED Orders 03/04/24 17:25 Complete Blood Count AUTO DIFF Stat Comprehensive Metabolic Panel Stat PTT Partial Thromboplastin Otilio Stat Prothrombin Time INR Stat 03/04/24 17:33 CT angio chest PE protocol Stat Vital Signs Vital signs: Vital Signs - 8 hr 03/04/24 21:05 Pulse Rate 86 Respiratory Rate 18 Blood Pressure 117/65 Pulse Oximetry 100 Oxygen Delivery Method Room Air MDM - Recheck/Abnormal Lab/Rx Lab Data 03/04/24 17:25 03/04/24 17:25 Labs: Lab Results 03/04/24 Range/Units 17:25 WBC 7.8 (4.5-11.0) X10^3/uL RBC 4.94 (4.0-5.2) X10^6/uL Hgb 13.4 (12.0-16.0) g/dL Hct 40.9 (36-46) % MCV 82.9 (80-100) fL MCH 27.1 (26-34) PG MCHC 32.7 (30-36) % RDW 17.1 H (11.6-14.8) % Plt Count 281 (150-400) X10^3/uL Neut % (Auto) 67.9 (50-75) % Lymph % (Auto) 22.3 L (25-40) % [place] % (Auto) 7.2 (3-14) % Eos % (Auto) 1.3 L (2-4) % Baso % (Auto) 1.3 (0-2) % Neut # (Auto) 5300 (0059-2596) /uL Lymph # (Auto) 1700 (4131-7968) /uL [place] # (Auto) 600 (0-900) /uL Eos # (Auto) 100 (0-450) /uL Baso # (Auto) 100 (0-100) /uL PT 17.8 H (9.4-12.5) SECONDS INR 1.6 H (0.9-1.3) APTT 40 H (25.1-36.5) SECONDS Sodium 136 L (137-145) mmol/L Potassium 3.7 (3.4-5.1) mmol/L Chloride 102 (98-107) mmol/L Carbon Dioxide 29 (22-32) mmol/L BUN 14 (7-17) mg/dL Creatinine 0.85 (0.52-1.04) mg/dL Estimated GFR > 60 (>60) mL/min BUN/Creatinine Ratio 16.5 (6-22) Glucose 97 (80-110) mg/dL Calcium 9.6 (8.4-10.2) mg/dL Total Bilirubin 1.0 (0.2-1.3) mg/dL AST 29 (14-36) IU/L ALT 20 (<35) IU/L Alkaline Phosphatase 99 (38-126) U/L Total Protein 7.9 (6.3-8.2) g/dL Albumin 4.2 (3.5-5.0) g/dL Globulin 3.7 (1.7-4.1) g/dL Albumin/Globulin Ratio 1.1 (1.0-2.8) Imaging Data CT scan - chest: Radiologist's Impression: PROCEDURE: CT ANGIO CHEST PE PROTOCOL INDICATIONS: history of PE's, has DVT in left leg, on eliquis TECHNIQUE: After the administration of intravenous contrast, 2 mm thick sections acquired from the pulmonary apices to the posterior costophrenic angles. 3-dimensional maximum intensity projection (MIP) coronal and sagittal reformats were then acquired through the thorax. For radiation dose reduction, the following was used: automated exposure control, adjustment of mA and/or kV according to patient size. COMPARISON: [facility], CT, CT ANGIO CHEST PE, 03/03/2023, 18:41. [facility], CT, CT ANGIO CHEST PE PROTOCOL, 06/26/2023, 15:18. FINDINGS: Image quality: Diagnostic. Pulmonary arteries: Pulmonary arteries are normal in size, and demonstrate no intraluminal filling defects to suggest central pulmonary embolism. Lower Neck: No enlarged lymph nodes. Thyroid: No thyroid nodules which require sonographic follow up, per consensus guidelines. Axillae: No enlarged lymph nodes. Chest Wall: Unremarkable. Bones: Unremarkable. Lungs and Pleura: No pneumothorax or pleural effusions. No consolidation or suspicious nodules. Benign-appearing 5 mm pleural based pulmonary nodule, left lung base, current image 195 of series 5. However, it is slightly greater than on the initial study of 03/03/2023, where it measured approximately 4 mm. Heart: Cardiomegaly. No pericardial effusion. Thoracic Vessels: No aortic aneurysm. Mediastinum and [place]: No enlarged lymph nodes. Esophagus: No wall thickening. No hiatal hernia. Upper Abdomen: Visualized upper abdomen solid organs and bowel loops appear normal. IMPRESSION: 1. No recurrent pulmonary emboli. 2. Mild cardiomegaly, as before. 3. Slight interval increase in a pleural based pulmonary nodule, left lung base, 5 mm. Comment: Recommend follow-up CT chest in 12 months. Dictated by: Daryl Cruz M.D. on 03/04/2024 at 18:14 Approved by: Daryl Cruz M.D. on 03/04/2024 at 18:19 MDM Narrative Medical decision making narrative: Patient presenting for rule out a pulmonary embolism. Found to have DVT on ultrasound imaging. Patient denying any chest or respiratory complaints. At the time of my evaluation the vascular ultrasound has been performed but there was no official Radiology read. CT imaging shows no pulmonary embolism. Slight increase in pleural based pulmonary nodule. Patient states that she was told to increase her Eliquis dose to 10 mg b.i.d. by her primary care doctor. Since she has already gotten a pulmonary embolism on Eliquis I discussed anticoagulation with on-call Medicine physician Dr. Lee, who recommended instead changing to 20 mg of Xarelto daily. Patient was informed of lab and imaging findings. She was counseled to reach out to her primary care doctor tomorrow for clarification on if she should continue with Eliquis or switch to Xarelto. Patient states that she is easily able to contact both her PCP and cardiology office and will reach out to their offices tomorrow. Strict ED return precautions discussed prior to discharge. Discharge Plan Departure Patient Disposition: Home Clinical Impression: DVT (deep venous thrombosis) Instructions: DI for Deep Vein Thrombosis Activity Restrictions/Additional Instructions: Your laboratory work today shows normal kidney and liver function. Your CT angio did not show any blood clots in your lungs. The medicine doctor on-call recommended switching you to Xarelto, however clarify with either your heart doctor or primary care doctor which medication you should take. If they do want you to switch to Xarelto then a prescription has been sent to the [facility] in [place]. If you notice any chest pain, heart rate irregularities, or shortness of breath please return immediately to the emergency department for repeat evaluation. I do recommend talking to your primary doctor to discuss if further testing is needed for why you developed a blood clot while you are on blood thinners. Prescriptions: New Xarelto 20 mg tablet 20 mg PO DAILY Qty: 60 0RF Rx Instructions: must administer with evening meal No Action nystatin 100,000 unit/gram ointment 1 applic topical BID Qty: 15 2RF omeprazole 20 mg capsule,delayed release(/EC) See Rx Instructions .ROUTE .COMPLEX Qty: 90 0RF Dose Instruction: take 1 capsule by mouth once daily Patient Comments: Pt states she takes PRN Rx Instructions: take 1 capsule by mouth once daily carvedilol 6.25 mg tablet 6.25 mg PO BID Rx Instructions: must administer with a meal/food nystatin [Nyamyc] 100,000 unit/gram powder 1 applic topical DAILY Qty: 60 3RF levothyroxine 125 mcg tablet 125 mcg PO DAILY Qty: 90 0RF Eliquis 5 mg tablet 10 mg PO BID Qty: 28 0RF Rx Instructions: Take 10mg twice daily for 7 days for treatment of DVT. After 7 days, continue existing prescription of 5mg BID Eliquis 5 mg Tablet 5 mg PO BID furosemide 40 mg Tablet 40 mg PO DAILY Referrals: Priya Gordon MD [Primary Care Provider] - Stand Alone Forms: Patient Portal/API/Survey
[2024-03-04 21:05] VITALS: BP 117/65; PULSE 86; RESP 18; O2SAT 100
== END 2024-03-04 21:06 | disposition home or self-care (01) ==
PROVIDERS: Emergency Medicine; Emergency Provider Emergency Medicine; PCP Family Medicine
DX: I82.402 Acute embolism and thrombosis of unspecified deep veins of left lower extremity (principal); Z79.01 Long term (current) use of anticoagulants; I82.412 Acute embolism and thrombosis of left femoral vein; I82.492 Acute embolism and thrombosis of other specified deep vein of left lower extremity; R60.9 Edema, unspecified
CPT/HCPCS: 36415; 71275; 80053; 85025; 85610; 85730; 93971; 99283; 99284; Q9967

== ENCOUNTER 2024-03-16 10:30 | Emergency (ER) | payer OTHER, SELFPAY ==
[2024-03-16 10:37] VITALS: BP 144/83
[2024-03-16 10:38] VITALS: PULSE 98; O2SAT 99
[2024-03-16 10:45] VITALS: BP 144/83; PULSE 91; RESP 20; TEMP 36.6; O2SAT 100; BMI 54.6
[2024-03-16 11:00] VITALS: BP 125/65; PULSE 78; O2SAT 99
--- NOTE | 2024-03-16 11:04 | ED_ITS ---
HPI - Skin/Abscess/Foreign Bdy General Chief complaint: Skin/Abscess/Foreign Body Stated complaint: on Lovenox, right side abd lump Time Seen by Provider: 03/16/24 10:40 Source: patient Mode of arrival: Ambulatory Limitations: no limitations History of Present Illness HPI narrative: 59-year-old woman with a history of hypothyroidism, BMI currently of 54.6 after losing 126 lb, diagnosed with multiple pulmonary emboli in March of last year eventually treated with Eliquis and then developed a left upper thigh clot diagnosed on March 04 of this year. Her Eliquis was discontinued and she was started on Lovenox, she has a follow up appointment with Hematology in mid April which will be about 3 months into her Lovenox dosing. She comes in today with complaints of firmness in the lower portion of her pannus on the right side where she has been doing her Eliquis injections. It is not painful, hot, red. She has not having any fevers or chills or other signs of infection. No additional signs of blood clots either legs or lungs. Related Data Home Medications Medication Instructions Recorded Confirmed furosemide 40 mg tablet 40 mg PO DAILY 04/03/23 03/11/24 carvedilol 6.25 mg tablet 6.25 mg PO BID 10/05/23 03/11/24 Previous Rx's Medication Instructions Recorded nystatin 100,000 unit/gram topical 1 applic topical DAILY #60 grams 11/02/23 powder ([facility]) levothyroxine 125 mcg tablet 125 mcg PO DAILY #90 tabs 12/19/23 nystatin 100,000 unit/gram topical 1 applic topical BID #15 grams 02/26/24 ointment enoxaparin 150 mg/mL subcutaneous 150 mg SUBCUT Q12H #30 mL 03/11/24 syringe (Lovenox) Allergies Allergy/AdvReac Type Severity Reaction Status Date / Time Penicillins [PENICILLINS] Allergy Unknown Verified 03/11/24 10:51 Review of Systems Review of Systems Narrative: Pertinent positive and negative findings as per HPI Patient History Medical History BMI 70 and over, adult Multiple pulmonary emboli (03/03/23) Pre-diabetes Depression Essential hypertension (06/25/16) Acquired hypothyroidism (01/10/17) Surgical History Hx of dilation and curettage (04/06/23) Status post tonsillectomy and adenoidectomy Family History Brother Age: 72 Frontal lobe dementia Mental health problem Depression Father Heart disease Alcoholic Grandfather Cancer Mother Age: 91 Hypertension Sister Cancer Social History household members: spouse Smoking Status: Never smoker alcohol intake: current Smoking Status: Never smoker alcohol intake frequency: a few times a week Substance Use Type: does not use Exam Initial Vital Signs Initial Vital Signs: Vital Signs Temperature 97.9 F 03/16/24 10:45 Pulse Rate 91 H 03/16/24 10:45 Respiratory Rate 20 03/16/24 10:45 Blood Pressure 144/83 H 03/16/24 10:45 Pulse Oximetry 100 03/16/24 10:45 Oxygen Delivery Method Room Air 03/16/24 10:45 General: Alert appropriate in no acute distress Respiratory: Able to speak in full sentences, no obvious respiratory distress Abdomen: She has quite a bit of bruising from shots in the right lower portion of her pannus. Just proximal to this there is an area of firmness that is not tender or fluctuant. No warmth or redness Skin: No obvious rashes, warm and dry Neurologic: Grossly intact no obvious asymmetries or abnormalities Psych: appropriate insight and affect, cooperative Bedside ultrasound of the area of concern shows a 5 x 7 x 3 cm fluid containing pocket that is mostly filled with blood clot. This is all contained with in fatty layer. Course Vital Signs Vital signs: Vital Signs - 8 hr 03/16/24 10:45 Temperature 97.9 F Pulse Rate 91 H Respiratory Rate 20 Blood Pressure 144/83 H Pulse Oximetry 100 Oxygen Delivery Method Room Air MDM - Skin/Abscess/Foreign Bdy MDM Narrative Medical decision making narrative: 59-year-old woman who developed a blood clot in the left thigh diagnosed March 04 while currently on Eliquis for bilateral PEs diagnosed in March of 2023. She has been switched to Lovenox and comes in with concern for an odd feeling to palpation in the right lower part of her pannus. Ultrasound confirms that she does have 7 x 5 x 3 cm cystic area with in fatty tissue of the pannus that is almost completely filled with clot. There was no evidence of infection or further complication. Care is briefly discussed with on-call surgeon, Dr. Anderson who agrees that conservative management with simply watching the area would be most appropriate. Discuss this with the patient who is quite pleased to do so. We went over all the signs of infection and reasons to return. Discussed sepsis type symptoms as well as local cellulitis or panniculitis type symptoms. Recommended she use the other side of her abdomen or her thighs for Lovenox injection. At this time there was no indication for additional blood work, antibiotics, hospitalization. She does have outpatient follow up already scheduled. Questions are answered she is safe for discharge Discharge Plan Departure Patient Disposition: Home Clinical Impression: Abdominal wall hematoma Qualifiers: Encounter type: initial encounter Qualified Code(s): S30.1XXA - Contusion of abdominal wall, initial encounter Instructions: DI for Hematoma (Bruise) Activity Restrictions/Additional Instructions: Thank you for coming in today The area of concern does have a cystic fluid collection with a blood clot inside it. It is 7 x 5 x 3 cm. This blood clot is not connected to anything else and will likely turn into a fibrous knot at that point as it heals. There has currently no evidence of infection and we do not want to cut into an enclosed space that is not infected because we do not want to add infection. If you notice signs of infection including fevers, chills, general malaise, increasing pain in the area, obvious redness or swelling to the area you need to return to the emergency department Please do use the left side of your abdomen and your thighs for your Lovenox injections Prescriptions: No Action nystatin 100,000 unit/gram ointment 1 applic topical BID Qty: 15 2RF enoxaparin [Lovenox] 150 mg/mL syringe 150 mg SUBCUT Q12H Qty: 30 3RF carvedilol 6.25 mg tablet 6.25 mg PO BID Rx Instructions: must administer with a meal/food nystatin [Nyamyc] 100,000 unit/gram powder 1 applic topical DAILY Qty: 60 3RF levothyroxine 125 mcg tablet 125 mcg PO DAILY Qty: 90 0RF furosemide 40 mg Tablet 40 mg PO DAILY Referrals: Priya Gordon MD [Primary Care Provider] - Stand Alone Forms: Patient Portal/API/Survey
== END 2024-03-16 11:59 | disposition home or self-care (01) ==
PROVIDERS: Emergency Provider Emergency Medicine; PCP Family Medicine
DX: S30.1XXA Contusion of abdominal wall, initial encounter (principal)
CPT/HCPCS: 99281

== ENCOUNTER → 2024-03-18 15:28 | Outpatient (CLI) | payer OTHER, SELFPAY ==
--- NOTE | 2024-03-18 15:28 | DI.US.S_ITS ---
PROCEDURE: US ABDOMEN LIMITED INDICATIONS: abd mass TECHNIQUE: Real-time focused scanning was performed of the abdomen, with image documentation. COMPARISON: [facility], CT, CT ANGIO CHEST PE PROTOCOL, 03/04/2024, 16:50. [facility], US, US PERIPH VENOUS LOW EXTREM LT, 03/04/2024, 15:18. FINDINGS: Focused ultrasound examination of right lower anterior abdominal wall at patient's reported area of palpable lump shows a 3.4 x 4.1 by 10 cm complex appearing hypoechoic structure within subcutaneous soft tissue and show no internal vascularity. Through acoustic enhancement is seen. IMPRESSION: Finding likely represent organizing hematoma in right anterior abdominal wall subcutaneous soft tissue and measures 3.4 x 4.1 x 10 cm in size. No solid mass is noted. The appearance is not consistent with abscess collection. Dictated by: Mk Virgen M.D. on 03/18/2024 at 16:27 Approved by: Mk Virgen M.D. on 03/18/2024 at 16:28
== END ==
PROVIDERS: PCP Family Medicine; Referring Provider Family Medicine; Visit Provider Family Medicine
DX: S30.1XXA Contusion of abdominal wall, initial encounter (principal)
CPT/HCPCS: 76705

== ENCOUNTER → 2024-03-25 13:23 | Outpatient (CLI) | payer OTHER, SELFPAY ==
--- NOTE | 2024-03-25 13:24 | DI.US.S_ITS ---
PROCEDURE: US PERIPH VENOUS LOW EXTREM BI INDICATIONS: FOLLOW UP LEFT DEEP VEIN THROMBOSIS. BILAT THIGH BRUISING. TECHNIQUE: Real-time imaging, as well as color and pulse Doppler interrogation, were performed of the deep veins of both legs from the inguinal ligament to the popliteal fossa, with documentation of the visualized calf veins. COMPARISON: None. FINDINGS: Right: The common femoral, femoral, popliteal, and the visualized calf veins are normally compressible, and free of intraluminal thrombus. Color and pulse Doppler demonstrate normal phasic intravascular flow. There is normal augmentation response to distal compression maneuver. Left: There is focal nonocclusive clot in the upper and mid thigh superficial femoral vein (deep vein of the thigh). Deep venous structures otherwise patent IMPRESSION: 1. No DVT, right lower extremity. 2. Focal segmental nonocclusive DVT in the left superficial femoral vein. Dictated by: Daryl Cruz M.D. on 03/25/2024 at 21:46 Approved by: Daryl Cruz M.D. on 03/25/2024 at 21:49
== END ==
PROVIDERS: PCP Family Medicine; Referring Provider Family Medicine; Visit Provider Family Medicine
DX: I82.412 Acute embolism and thrombosis of left femoral vein (principal)
CPT/HCPCS: 93970

== ENCOUNTER 2024-07-09 12:28 | Inpatient (IN) | payer OTHER, SELFPAY ==
[2024-07-09] VITALS (11 sets, daily range): BP systolic 100–140; BP diastolic 60–94; PULSE 92–117; RESP 10–21; TEMP 36.5–36.8; O2SAT 100; BMI 47.0
--- NOTE | 2024-07-09 12:41 | DI.RAD.S_ITS ---
PROCEDURE: XR CHEST 1V INDICATIONS: chest pain TECHNIQUE: One view of the chest was acquired. COMPARISON: None. FINDINGS: Surgical changes and devices: None. Lungs and pleura: Lungs are clear. No pleural effusions or pneumothorax. Mediastinum: Mediastinal contours appear normal. Heart size is normal. Bones and chest wall: No suspicious bony lesions. Overlying soft tissues appear unremarkable. IMPRESSION: No acute cardiopulmonary pathology. Dictated by: Mk Virgen M.D. on 07/09/2024 at 13:07 Approved by: Mk Virgen M.D. on 07/09/2024 at 13:07
--- NOTE | 2024-07-09 13:12 | EKG_ITS ---
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
[2024-07-09 14:02] LABS: Add Manual Diff / Slide Review NO; Basophils Absolute Auto 100 /uL (0-100); Basophils Percent Auto 0.6 % (0-2); Eosinophils Absolute Auto 0 /uL (0-450); Eosinophils Percent Auto 0.1 % (2-4); Hematocrit 33.8 % (36-46); Hemoglobin 11.5 g/dL (12.0-16.0); Lymphocytes Absolute Auto 1000 /uL (1100-4500); Mean Corpuscular Hemoglobin 29.2 PG (26-34); Mean Corpuscular Volume 85.9 fL (80-100); Monocytes Absolute Auto 500 /uL (0-900); Monocytes Percent Auto 5.3 % (3-14); Neutrophils Absolute Auto 7400 /uL (1500-7000); Platelet Count 255 X10^3/uL (150-400); Red Blood Cell Count 3.93 X10^6/uL (4.0-5.2); Red Cell Distribution Width 15.5 % (11.6-14.8)
[2024-07-09 14:06] LABS: INR 1.3 (0.9-1.3); Prothrombin Time 14.4 SECONDS (9.4-12.5)
[2024-07-09 14:08] LABS: PTT Partial Thromboplastin Tim 39 SECONDS (25.1-36.5)
[2024-07-09 14:10] LABS: Alanine Aminotransferase 19 IU/L (<35); Albumin Globulin Ratio 1.3 (1.0-2.8); Alkaline Phosphatase 67 U/L (38-126); Aspartate Aminotransferase 23 IU/L (14-36); BUN Creatinine Ratio 20.3 (6-22); Bilirubin Total 1.1 mg/dL (0.2-1.3); Blood Urea Nitrogen 16 mg/dL (7-17); Calcium 9.6 mg/dL (8.4-10.2); Carbon Dioxide 23 mmol/L (22-32); Chloride 102 mmol/L (98-107); Creatine Kinase < 20 U/L (30-135); Estimated Glomerular Filt Rate > 60 mL/min (>60); Glucose 130 mg/dL (80-110); HEMOLYSIS < 15 (0-50); Lipase 48 U/L (23-300); Magnesium 1.5 mg/dL (1.6-2.3); Sodium 135 mmol/L (137-145)
[2024-07-09 14:21] LABS: NT-proBNP (BNP-Adult 18+) 435 pg/mL (<125); Troponin I < 0.012 ng/mL (0.01-0.034)
--- NOTE | 2024-07-09 14:51 | ED_ITS ---
HPI - Dizziness General Chief Complaint: Dizziness Stated Complaint: lightheaded, HR running low, hx afib Time Seen by Provider: 07/09/24 14:17 Source: patient Mode of arrival: Wheelchair History of Present Illness HPI Narrative: Patient has history of Lovenox use for atrial fibrillation and pulmonary embolism and blood clots. Patient is here with . Has been dizzy off and on for last couple of days. No palpitations. She noticed pulse drop into the 40s in the past couple of days. However, patient also complains of enlarging mass/hematoma on the abdomen. She does do Lovenox shots and it is common for her to have hematomas but this is very large. No rectal bleeding no hematuria. No syncope no chest pain. No back pain. There is a very large 18 inch hematoma on her mid abdomen on the left side. Patient is chronically in atrial fibrillation. This is not new. Related Data Home Medications Medication Instructions Recorded Confirmed furosemide 40 mg tablet 40 mg PO DAILY 04/03/23 07/09/24 carvedilol 6.25 mg tablet 6.25 mg PO BID 10/05/23 07/09/24 enoxaparin 150 mg/mL subcutaneous 120 mg SUBCUT Q12H 07/09/24 07/09/24 syringe (Lovenox) vitamin A-vitamin E 25,000 unit-30 25,000 cap PO QAM 07/09/24 07/09/24 unit capsule Previous Rx's Medication Instructions Recorded nystatin 100,000 unit/gram topical 1 applic topical BID #15 grams 02/26/24 ointment nystatin 100,000 unit/gram topical 1 applic topical DAILY #60 grams 03/31/24 powder ([facility]) levothyroxine 125 mcg tablet 125 mcg PO DAILY #90 tabs 06/11/24 Allergies Allergy/AdvReac Type Severity Reaction Status Date / Time Penicillins [PENICILLINS] Allergy Intermediate Hives Verified 07/10/24 15:55 Review of Systems Review of Systems Narrative: GENERAL: Negative chills, fatigue, malaise, fever, sweats. HEENT: Negative sinus pain, ear pain, sore throat RESPIRATORY: Negative dyspnea, cough CARDIOVASCULAR: Negative chest pain, palpitations GASTROINTESTINAL: Negative vomiting, nausea, positive abdominal pain : Negative dysuria, frequency, hematuria MUSCULOSKELETAL: Negative muscle or bony pain SKIN: Negative rash, skin lesions NEUROLOGIC: Negative weakness, numbness, positive dizziness Patient History Medical History BMI 70 and over, adult Multiple pulmonary emboli (03/03/23) Pre-diabetes Depression Essential hypertension (06/25/16) Acquired hypothyroidism (01/10/17) Surgical History Hx of dilation and curettage (04/06/23) Status post tonsillectomy and adenoidectomy Family History Brother Age: 73 Frontal lobe dementia Mental health problem Depression Father Heart disease Alcoholic Grandfather Cancer Mother Age: 92 Hypertension Sister Cancer Social History household members: spouse Smoking Status: Never smoker alcohol intake: current Smoking Status: Never smoker alcohol intake frequency: a few times a week Exam Narrative Exam Narrative: GENERAL: in no distress, not toxic not dyspneic HEAD: Normocephalic. EYES: Pupils equal round ENT: Mucous membranes moist. NECK: Trachea midline. CARDIOVASCULAR: Tachycardia with irregular irregular, heart rate ranges between 90 and 110 on monitor RESPIRATORY: Clear to auscultation. Breath sounds equal bilaterally. No wheezes, rales, or rhonchi. GASTROINTESTINAL: Abdomen soft, large hematoma palpable and left lower quadrant area. No peritoneal signs. There are other small hematomas from Lovenox injections that are mildly tender diffuse through the abdomen as well. Skin is intact. No necrosis. No tenting of the skin. EXTREMITIES: No gross deformities. BACK: No flank tenderness. NEURO: AOx4. Clear speech SKIN: Warm and dry PSYCH: Not anxious, is cooperative Initial Vital Signs Initial Vital Signs: Vital Signs Temperature 98.3 F 07/09/24 12:32 Pulse Rate 100 H 07/09/24 12:32 Respiratory Rate 20 07/09/24 12:32 Blood Pressure 140/94 H 07/09/24 12:32 Pulse Oximetry 100 07/09/24 12:32 Oxygen Delivery Method Room Air 07/09/24 12:32 Course Orders Ordered: Acetaminophen (Acetaminophen 650 Mg Supp) 650 mg NV Q4HR PRN PRN Reason: Fever/Mild Pain (1-3) Acetaminophen (Acetaminophen 325 Mg Tablet) 650 mg PO Q4H PRN PRN Reason: Fever/Mild Pain (1-3) Last Admin: 07/11/24 15:48 Dose: 650 mg Documented By: MADDIE Ascorbic Acid (Ascorbic Acid 500 Mg Tablet) 500 mg PO BID [facility] Carvedilol (Carvedilol 3.125 Mg Tablet) 6.25 mg PO BID [facility] Last Admin: 07/11/24 09:47 Dose: Not Given Documented By: Admin: 07/10/24 21:00 Dose: Not Given Documented By: Admin: 07/10/24 11:21 Dose: Not Given Documented By: Admin: 07/09/24 21:37 Dose: 6.25 mg Documented By: MARY BETH Ferrous Sulfate (Ferrous Sulfate 325 Mg Tablet) 325 mg PO BIDWM [facility] Last Admin: 07/11/24 17:31 Dose: 325 mg Documented By: MADDIE Furosemide (Furosemide 40 Mg Tablet) 40 mg PO DAILY [facility] Last Admin: 07/11/24 09:47 Dose: Not Given Documented By: Admin: 07/10/24 11:21 Dose: 40 mg Documented By: Hydromorphone HCl (Hydromorphone 0.5 Mg Inj) 0.5 mg IV Q3H PRN PRN Reason: Pain, Severe (7-10) Last Admin: 07/10/24 05:41 Dose: 0.5 mg Documented By: Admin: 07/10/24 02:12 Dose: 0.5 mg Documented By: Admin: 07/09/24 21:35 Dose: 0.5 mg Documented By: MARY BETH Sodium Chloride (Normal Saline 0.9%) 1,000 mls @ 100 mls/hr IV CONT [facility] Last Admin: 07/11/24 05:54 Dose: 100 mls/hr Documented By: Infusion: 07/11/24 05:46 Dose: Infused Documented By: Admin: 07/10/24 19:46 Dose: 100 mls/hr Documented By: Infusion: 07/10/24 10:36 Dose: Infused Documented By: Admin: 07/10/24 04:22 Dose: 100 mls/hr Documented By: Infusion: 07/10/24 04:21 Dose: Infused Documented By: Admin: 07/09/24 18:21 Dose: 100 mls/hr Documented By: KEYANNA Levothyroxine Sodium (Levothyroxine 125 Mcg Tablet) 125 mcg PO DAILY@0600 [facility] Last Admin: 07/11/24 09:55 Dose: 125 mcg Documented By: Admin: 07/10/24 05:42 Dose: 125 mcg Documented By: LIYAH Naloxone HCl (Naloxone 0.4 Mg/Ml Vial) 0.2 mg IV Q2MIN PRN PRN Reason: Opiate Reversal Nystatin (Nystatin Powder 15gm) 1 applic TOP TID PRN PRN Reason: Rash Ondansetron HCl (Ondansetron 4 Mg Odt) 4 mg PO Q8HR PRN PRN Reason: Nausea And Vomiting Last Admin: 07/09/24 21:36 Dose: 4 mg Documented By: MARY BETH Ondansetron HCl (Ondansetron 4 Mg/2 Ml Inj) 4 mg IV Q4HR PRN PRN Reason: Nausea And Vomiting Oxycodone HCl (Oxycodone Ir 5 Mg Tablet) 5 mg PO Q3H PRN PRN Reason: Pain, Moderate (4-6) Last Admin: 07/10/24 11:21 Dose: 5 mg Documented By: Polyethylene Glycol (Polyethylene Glycol 3350 17 Gm Powd.Pack) 17 gm PO BID [facility] Sodium Chloride (Sodium Chloride 0.9% Flush) 10 ml IV PRN PRN PRN Reason: Flush Discontinued Medications Acetaminophen (Acetaminophen 325 Mg Tablet) 650 mg PO Q6H PRN PRN Reason: Fever/Mild Pain (1-3) Last Admin: 07/11/24 11:17 Dose: 650 mg Documented By: Admin: 07/11/24 02:08 Dose: 650 mg Documented By: Admin: 07/10/24 11:20 Dose: 650 mg Documented By: Bupivacaine HCl/Epinephrine Bitart (Bupivacaine 0.25% W/ Epi 30 Ml Vial) 30 ml INJ NOW ONE Stop: 07/10/24 09:06 Last Admin: 07/10/24 09:05 Dose: 30 ml Documented By: DEIDRE Sodium Chloride (Normal Saline 0.9%) 500 mls @ 1,000 mls/hr IV BOLUS ONE Stop: 07/09/24 15:19 Last Admin: 07/09/24 15:56 Dose: 1,000 mls/hr Documented By: ALESSANDRO Cefazolin Sodium/Dextrose (Ancef) 100 mls @ 200 mls/hr IV NOW ONE Stop: 07/10/24 09:04 Last Admin: 07/10/24 08:25 Dose: 200 mls/hr Documented By: CH Lidocaine HCl (Lidocaine 1% 20 Ml) 20 ml INJ NOW ONE Stop: 07/10/24 09:06 Last Admin: 07/10/24 09:05 Dose: 20 ml Documented By: PH Sodium Chloride (Sodium Chloride 0.9% Flush) 10 ml IV PRN PRN PRN Reason: Flush Sodium Chloride (Sodium Chloride 0.9% Flush) 10 ml IV BID JULIANE Vital Signs Vital signs: Vital Signs - 8 hr 07/09/24 12:32 07/09/24 13:26 07/09/24 13:30 Temperature 98.3 F Pulse Rate 100 H 117 H 102 H Respiratory Rate 20 10 L 12 Blood Pressure 140/94 H Pulse Oximetry 100 100 100 Oxygen Delivery Method Room Air 07/09/24 14:00 07/09/24 14:30 07/09/24 15:30 Temperature Pulse Rate 98 H 92 H 95 H Respiratory Rate 12 21 13 Blood Pressure Pulse Oximetry 100 100 100 Oxygen Delivery Method 07/09/24 15:47 Temperature Pulse Rate Respiratory Rate Blood Pressure 127/74 Pulse Oximetry Oxygen Delivery Method MDM - Dizziness Lab Data 07/11/24 04:56 07/09/24 13:40 Labs: Lab Results 07/09/24 Range/Units 13:40 WBC 9.0 (4.5-11.0) X10^3/uL RBC 3.93 L (4.0-5.2) X10^6/uL Hgb 11.5 L (12.0-16.0) g/dL Hct 33.8 L (36-46) % MCV 85.9 (80-100) fL MCH 29.2 (26-34) PG MCHC 34.0 (30-36) % RDW 15.5 H (11.6-14.8) % Plt Count 255 (150-400) X10^3/uL Neut % (Auto) 83.0 H (50-75) % Lymph % (Auto) 11.0 L (25-40) % Brewster % (Auto) 5.3 (3-14) % Eos % (Auto) 0.1 L (2-4) % Baso % (Auto) 0.6 (0-2) % Neut # (Auto) 7400 H (2672-7293) /uL Lymph # (Auto) 1000 L (6017-6373) /uL Brewster # (Auto) 500 (0-900) /uL Eos # (Auto) 0 (0-450) /uL Baso # (Auto) 100 (0-100) /uL PT 14.4 H (9.4-12.5) SECONDS INR 1.3 (0.9-1.3) APTT 39 H (25.1-36.5) SECONDS Sodium 135 L (137-145) mmol/L Potassium 4.0 (3.4-5.1) mmol/L Chloride 102 (98-107) mmol/L Carbon Dioxide 23 (22-32) mmol/L BUN 16 (7-17) mg/dL Creatinine 0.79 (0.52-1.04) mg/dL Estimated GFR > 60 (>60) mL/min BUN/Creatinine Ratio 20.3 (6-22) Glucose 130 H (80-110) mg/dL Calcium 9.6 (8.4-10.2) mg/dL Magnesium 1.5 L (1.6-2.3) mg/dL Total Bilirubin 1.1 (0.2-1.3) mg/dL AST 23 (14-36) IU/L ALT 19 (<35) IU/L Alkaline Phosphatase 67 (38-126) U/L Total Creatine Kinase < 20 L (30-135) U/L Troponin I < 0.012 (0.01-0.034) ng/mL NT-Pro-B Natriuret Pep 435 H (<125) pg/mL Total Protein 7.0 (6.3-8.2) g/dL Albumin 4.0 (3.5-5.0) g/dL Globulin 3.0 (1.7-4.1) g/dL Albumin/Globulin Ratio 1.3 (1.0-2.8) Lipase 48 (23-300) U/L Imaging Data Chest x-ray: Radiologist's Impression: [address] [address] XRay Report Signed Patient: Nat Whelan MR#: [id number] : 1965 Acct:[id number] Age/Sex: 59 / F Date of Service: 07/09/24 Loc: ED Accession Number: [id number] Procedure: XR chest 1V Ordering Provider: Clay Correa MD PROCEDURE: XR CHEST 1V INDICATIONS: chest pain TECHNIQUE: One view of the chest was acquired. COMPARISON: None. FINDINGS: Surgical changes and devices: None. Lungs and pleura: Lungs are clear. No pleural effusions or pneumothorax. Mediastinum: Mediastinal contours appear normal. Heart size is normal. Bones and chest wall: No suspicious bony lesions. Overlying soft tissues appear unremarkable. IMPRESSION: No acute cardiopulmonary pathology. Dictated by: Mk Virgen M.D. on 07/09/2024 at 13:07 Approved by: Mk Virgen M.D. on 07/09/2024 at 13:07 CT scan - abdomen/pelvis: Radiologist's Impression: [place] [address] CT Scan Report Signed Patient: Nat Whelan MR#: [id number] : 1965 Acct:[id number] Age/Sex: 59 / F Date of Service: 07/09/24 Loc: ED Accession Number: [id number] Procedure: CT abdomen pelvis w con Ordering Provider: Clay Correa MD PROCEDURE: CT ABDOMEN PELVIS W CON INDICATIONS: IV contrast only/abdominal wall swelling TECHNIQUE: After the administration of intravenous contrast, axial sections acquired from the lung bases to the pubic symphysis. Coronal and sagittal reformats were performed. For radiation dose reduction, the following was used: automated exposure control, adjustment of mA and/or kV according to patient size. COMPARISON: None. FINDINGS: Image quality: Diagnostic. Lower Chest: No significant findings. ABDOMEN: Liver: No solid mass. Gallbladder: Partially calcified stone is seen in dependent portion of gallbladder lumen near fundus and measures 2.2 cm in size. No gallbladder wall thickening. Biliary ducts: No biliary dilation. Pancreas: No ductal dilation. Spleen: Size is within normal limits. Adrenal Glands: No adrenal nodules. Kidneys and Ureters: No hydronephrosis. No solid mass. No complex renal cystic lesion which requires follow up. Stomach and Bowel: Normal colonic caliber, without significant wall thickening . sigmoid diverticulosis without CT evidence of acute diverticulitis. No abscess collection. Peritoneum: No abnormal intraperitoneal fluid. No free air. Ventral Wall: No significant ventral hernia. Large hematoma involving left anterior abdominal wall soft tissue is seen measures up to 24.3 x 10.2 x 10.9 cm in size series 2, image 89. . Significant surrounding fat stranding is seen. Fluid fluid level is noted within this collection suggestive of acute on chronic bleed. Additional smaller hematoma are seen in more anterior and medial left abdominal wall measures 3 x 2.7 cm and 2.9 x 2.2 cm in size series 2, images 82 and 90. Possible smaller hematoma versus injection granuloma are also noted in right anterior abdominal wall and more inferior left anterior abdominal wall measures up to 2 cm in size on the left side and 1.7 cm in size on the right side series 2 image 78. Abdominal Nodes: No retroperitoneal or mesenteric adenopathy by size criteria. Vessels: Aorta and inferior vena cava are normal in size. PELVIS: Pelvic Organs: Unremarkable. Bladder: No bladder wall thickening, accounting for underdistention. Pelvic Nodes: No enlarged lymph nodes. Miscellaneous: No inguinal hernias are seen. Bones: No aggressive osseous abnormality. IMPRESSION: 1. Large organizing hematoma in anterior abdominal wall with significant adjacent soft tissue stranding and measures up to 24.3 x 10.2 x 10.9 cm in size. Internal fluid fluid level is seen concerning for acute acute to subacute on chronic bleed. 2. Additional smaller organizing hematoma and possible ingestion granuloma scattered in anterior abdominal wall as above. 3. No peritoneal free fluid or free air. No retroperitoneal hematoma. No abscess collection. Sigmoid diverticulosis without CT evidence of acute diverticulitis. 4. Cholelithiasis without CT evidence of acute cholecystitis. Dictated by: Mk Virgen M.D. on 07/09/2024 at 15:17 Approved by: Mk Virgen M.D. on 07/09/2024 at 15:22 MDM Narrative Medical decision making narrative: Patient has history of Lovenox use for atrial fibrillation and pulmonary embolism and blood clots. Patient is here with . Has been dizzy off and on for last couple of days. No palpitations. She noticed pulse drop into the 40s in the past couple of days. However, patient also complains of enlarging mass/hematoma on the abdomen. She does do Lovenox shots and it is common for her to have hematomas but this is very large. No rectal bleeding no hematuria. No syncope no chest pain. No back pain. There is a very large 18 inch hematoma on her mid abdomen on the left side. Patient is chronically in atrial fibrillation. This is not new. After history and exam, CBC CMP PT INR troponin EKG chest x-ray [facility] Medical records reviewed: No recent visit for this complaint Differential considered: Includes but not limited to hematoma anemia AFib dehydration Lab Test results independently reviewed as above. Pertinent findings: WBC 9.0 hemoglobin 11.5 platelets 225 INR 1.3 sodium 135 potassium 4.0 BUN 16 creatinine 0.79 glucose 130 troponin less than 0.012 BNP 435 Independently reviewed EKG atrial fibrillation rate 117 Imaging studies independently reviewed: Chest x-ray no acute finding, CT abdomen pelvis acute on chronic large hematoma abdominal wall Consultations: 3:44 p.m.. Spoke with General surgery Dr. Anderson, no reversal medication indicated at this time. Just hold the Lovenox. Tomorrow they may evacuate the hematoma. Who will follow in consult. 4:03 p.m.. Spoke with primary care doctor vickie, she will admit patient Treatments: Normal saline Re-evaluations: 3:42 p.m.. Updated patient results and agrees for admission for the hematoma. Discussion: Appropriate for admission for acute bleed for hematoma. General surgery was consulted. Primary care provider contacted for admission. Patient hemodynamically stable. Diagnosis: Hematoma Discharge Plan Departure Patient Disposition: Admitted As Inpatient Clinical Impression: Hematoma Admit Date/Time: 07/09/24 16:02 Admit Provider: Priya Gordon
[2024-07-09] MEDS: SODIUM CHLORIDE 0.9% 500 ML 1000 ML IV (15:56)
--- NOTE | 2024-07-09 16:49 | PC.NURSE ---
Addendum entered by Aurora Barker R.N. 07/09/24 17:18: VS WNL. RA 100%. She remains A&Ox4 and is good spirits. Will be NPO until seen by Dr Anderson. Was just seen by Dr Gordon. Original Note: Day shift: Pt in room from ED at approx 1640. Stood at bedside/stretcher to transfer to ACU bed and complained of dizziness. She was able to get into bed safe. Dr Gordon in room at approx 1645. Spouse is also in room for support. Oriented to room and call light. Bed alarm is on. Pt agrees to not get OOB without help from staff. Will continue to monitor.
--- NOTE | 2024-07-09 17:34 | P.HP_ITS ---
History of Present Illness History of Present Illness Date Patient Seen: 07/09/24 Time Patient Seen: 16:50 Chief complaint: lightheaded, HR running low, hx afib Narrative: Pt is a 59yo woman with atrial fibrillation, hypertension, hypothyroidism, pre- diabetes, sleep apnea, and history of recurrent clots including PE who presented with lightheadedness and abdominal hematoma. The pt reports that on 07/04 she developed a small abdominal hematoma at the site of a Lovenox injection. She has a history of abdominal hematomas from the Lovenox, however these were managed successfully conservatively with compression. This hematoma continued to very slowly enlarge. It was increasingly painful. Yesterday she noted that she started to feel more lightheaded, mainly when rising from the seated position. This morning the pt noted increased lightheadedness, even when seated. She took her HR and her pulse ox registered it in the 40s. Her BPs at home have been frequently in the low 100s. The pt noted that the abdominal hematoma had enlarged significantly overnight. She came to the ED for evaluation. Since being in the ER, the pt reports that the hematoma has nearly doubled in size. She reports increased pain, although it is still manageable. She continues to feel lightheaded, but is feeling better when laying down. [facility] Medical History BMI 70 and over, adult Multiple pulmonary emboli (03/03/23) Pre-diabetes Depression Essential hypertension (06/25/16) Acquired hypothyroidism (01/10/17) Surgical History Hx of dilation and curettage (04/06/23) Status post tonsillectomy and adenoidectomy Family History Brother Age: 72 Frontal lobe dementia Mental health problem Depression Father Heart disease Alcoholic Grandfather Cancer Mother Age: 91 Hypertension Sister Cancer Social History household members: spouse Smoking Status: Never smoker alcohol intake: current Meds Home Medications and Allergies Home Medications Medication Instructions Recorded Confirmed Type furosemide 40 mg tablet 40 mg PO DAILY 04/03/23 07/09/24 History carvedilol 6.25 mg tablet 6.25 mg PO BID 10/05/23 07/09/24 History nystatin 100,000 unit/gram topical 1 applic topical BID #15 grams 02/26/24 07/09/24 Rx ointment hydrocodone 5 mg-acetaminophen 325 1 tab PO Q8H PRN pain #14 tabs 03/19/24 03/19/24 Rx mg tablet nystatin 100,000 unit/gram topical 1 applic topical DAILY #60 grams 03/31/24 07/09/24 Rx powder (Nyamyc) levothyroxine 125 mcg tablet 125 mcg PO DAILY #90 tabs 06/11/24 07/09/24 Rx enoxaparin 150 mg/mL subcutaneous 120 mg SUBCUT Q12H 07/09/24 07/09/24 History syringe (Lovenox) vitamin A-vitamin E 25,000 unit-30 25,000 cap PO QAM 07/09/24 07/09/24 History unit capsule Allergies Allergy/AdvReac Type Severity Reaction Status Date / Time Penicillins [PENICILLINS] Allergy Unknown Verified 07/09/24 17:06 Exam Vital Signs (past 8 hours): - 07/09/24 12:32 07/09/24 13:26 07/09/24 13:30 Temperature 98.3 F Pulse Rate 100 H 117 H 102 H Respiratory Rate 20 10 L 12 Blood Pressure 140/94 H Pulse Oximetry 100 100 100 Oxygen Delivery Method Room Air 07/09/24 14:00 07/09/24 14:30 07/09/24 15:30 Temperature Pulse Rate 98 H 92 H 95 H Respiratory Rate 12 21 13 Blood Pressure Pulse Oximetry 100 100 100 Oxygen Delivery Method 07/09/24 15:46 07/09/24 15:46 07/09/24 15:47 Temperature Pulse Rate 113 H Respiratory Rate Blood Pressure 127/74 127/74 Pulse Oximetry 100 Oxygen Delivery Method 07/09/24 16:00 Temperature Pulse Rate 106 H Respiratory Rate 14 Blood Pressure Pulse Oximetry 100 Oxygen Delivery Method Oxygen Delivery Method Room Air Narrative Exam Narrative: Gen: NAD, sitting comfortably in bed, appears slightly more pale than usual HEENT: normocephalic, atraumatic, sclera clear Neck: no JVD, no LAD CV: irregularly irregular rhythm, normal rate, no murmurs Resp: clear to auscultation bilaterally Abd: central to left abdomen with very large hematoma encompassing nearly entire half of abdomen, firm to touch with firmness extending beyond edge of bruising, tender to palpation over hematoma otherwise nontender, normoactive bowel sounds, obese Ext: no edema Neuro: no gross deficits Objective Labs 07/09/24 13:40 07/09/24 13:40 Labs: Laboratory Results - last 24 hr 07/09/24 13:40 WBC 9.0 RBC 3.93 L Hgb 11.5 L Hct 33.8 L MCV 85.9 MCH 29.2 MCHC 34.0 RDW 15.5 H Plt Count 255 Neut % (Auto) 83.0 H Lymph % (Auto) 11.0 L Dickenson % (Auto) 5.3 Eos % (Auto) 0.1 L Baso % (Auto) 0.6 Neut # (Auto) 7400 H Lymph # (Auto) 1000 L Dickenson # (Auto) 500 Eos # (Auto) 0 Baso # (Auto) 100 PT 14.4 H INR 1.3 APTT 39 H Sodium 135 L Potassium 4.0 Chloride 102 Carbon Dioxide 23 BUN 16 Creatinine 0.79 Estimated GFR > 60 BUN/Creatinine Ratio 20.3 Glucose 130 H Calcium 9.6 Magnesium 1.5 L Total Bilirubin 1.1 AST 23 ALT 19 Alkaline Phosphatase 67 Total Creatine Kinase < 20 L Troponin I < 0.012 NT-Pro-B Natriuret Pep 435 H Total Protein 7.0 Albumin 4.0 Globulin 3.0 Albumin/Globulin Ratio 1.3 Lipase 48 Assessment & Plan Assessment & Plan narrative: Pt is a 59yo woman with atrial fibrillation, hypertension, hypothyroidism, pre- diabetes, sleep apnea, and history of recurrent clots including PE who presented with lightheadedness and abdominal hematoma. 1) Intraabdominal hematoma: Very extensive measuring [id number] in the ED, however appears even larger in size now based on palpation. Very concerning for active ongoing bleeding. - Surgery consulted, appreciate ongoing care 2) Acute blood loss anemia: Pt with drop in H/H since February, not at transfusion level. Due to hematoma. - Continue to trend with repeat CBC now 3) Lightheadedness: Improved somewhat with IVF bolus in the ED. Pt reports bradycardia at home however suspect pulse ox not reading properly from atrial fibrillation. HR here thus far appropriate. More likely due to hematoma/blood loss. - Continue telemetry - mIVF while NPO 4) Atrial fibrillation/Hx of recurrent clot: Followed by Hematology. On Lovenox due to history of new DVT while on Eliquis. - Hold anticoagulation - Will contact Hematology prior to discharge for plans regarding ongoing anticoagulation - Continue Carvedilol for rate control 5) Hypertension: BP in good range - Monitor for hypotension 6) Hypothyroidism: - Continue Levothyroxine 7) Sleep apnea: - Pts bringing CPAP from home DVT ppx: Holding anticoagulation currently due to bleeding, SCDs FEN: NPO pending surgical eval Code: Full Dispo: Pending surgical eval and likely intervention. Anticipate at least 2 midnights due to size of hematoma, needed monitoring, etc. Time-Based Coding :: [TOTAL MINUTES] spent with patient and on the chart (including review of chart, obtaining history, exam, reviewing outside data, placing orders, documenting exam and treatment plan, and counseling patient) on [DATE]. [employer] Document charge(s): Yes Charge Codes Initial inpatient/observation care: [id number]
[2024-07-09] MEDS: SODIUM CHLORIDE 0.9% 1,000 ML 100 ML IV (18:21)
--- NOTE | 2024-07-09 18:28 | P.CONS_ITS ---
History of Present Illness Consult details Date Patient Seen: 07/09/24 Time Patient Seen: 18:28 Chief complaint: lightheaded, HR running low, hx afib Reason for consult: abdominal wall hematoma Narrative: This is a 59-year-old female with a BMI of 47, atrial fibrillation and DVTs with PEs who was previously on Coumadin, switch to Eliquis developed new clots on Eliquis and those switch to Lovenox. She has been on Lovenox for 4 months. She has had small hematomas ever abdominal wall before. She developed a hematoma of abdominal wall it has increased in size and now she is lightheaded. Hemoglobin in the ER was only slightly decreased. She remains borderline tachycardic in atrial fibrillation on the floor. She took her Lovenox today this morning. She has had an intentional weight loss of over 100 lb by restricting her diet to 1200 calories per day Meds Home Medications and Allergies Home Medications Medication Instructions Recorded Confirmed Type furosemide 40 mg tablet 40 mg PO DAILY 04/03/23 07/09/24 History carvedilol 6.25 mg tablet 6.25 mg PO BID 10/05/23 07/09/24 History nystatin 100,000 unit/gram topical 1 applic topical BID #15 grams 02/26/24 07/09/24 Rx ointment hydrocodone 5 mg-acetaminophen 325 1 tab PO Q8H PRN pain #14 tabs 03/19/24 03/19/24 Rx mg tablet nystatin 100,000 unit/gram topical 1 applic topical DAILY #60 grams 03/31/24 07/09/24 Rx powder (Nyamyc) levothyroxine 125 mcg tablet 125 mcg PO DAILY #90 tabs 06/11/24 07/09/24 Rx enoxaparin 150 mg/mL subcutaneous 120 mg SUBCUT Q12H 07/09/24 07/09/24 History syringe (Lovenox) vitamin A-vitamin E 25,000 unit-30 25,000 cap PO QAM 07/09/24 07/09/24 History unit capsule Allergies Allergy/AdvReac Type Severity Reaction Status Date / Time Penicillins [PENICILLINS] Allergy Unknown Verified 07/09/24 17:06 Review of Systems Review of Systems ROS: Yes All systems reviewed with the patient and are negative except as otherwise documented Exam Vital Signs (past 8 hours): - 07/09/24 12:32 07/09/24 13:26 07/09/24 13:30 Temperature 98.3 F Pulse Rate 100 H 117 H 102 H Respiratory Rate 20 10 L 12 Blood Pressure 140/94 H Pulse Oximetry 100 100 100 Oxygen Delivery Method Room Air 07/09/24 14:00 07/09/24 14:30 07/09/24 15:30 Temperature Pulse Rate 98 H 92 H 95 H Respiratory Rate 12 21 13 Blood Pressure Pulse Oximetry 100 100 100 Oxygen Delivery Method 07/09/24 15:46 07/09/24 15:46 07/09/24 15:47 Temperature Pulse Rate 113 H Respiratory Rate Blood Pressure 127/74 127/74 Pulse Oximetry 100 Oxygen Delivery Method 07/09/24 16:00 Temperature Pulse Rate 106 H Respiratory Rate 14 Blood Pressure Pulse Oximetry 100 Oxygen Delivery Method Oxygen Delivery Method Room Air Narrative Exam Narrative: Gen: NAD, sitting comfortably in bed, appears well HEENT: Sclera are anicteric, head is normocephalic and atraumatic, trachea is midline. CV: Irregular heart rate, no JVD Resp: clear to auscultation bilaterally, equal chest wall movement bilaterally Abd: soft, nontender, normoactive bowel sounds. Large, palpable hematoma of the left abdominal wall Ext: no edema, full range of motion Neuro: Cranial nerves II-XII grossly intact, no focal deficits Skin: No erythema or ecchymosis Objective Labs 07/09/24 13:40 07/09/24 13:40 Labs: Laboratory Results - last 24 hr 07/09/24 13:40 WBC 9.0 RBC 3.93 L Hgb 11.5 L Hct 33.8 L MCV 85.9 MCH 29.2 MCHC 34.0 RDW 15.5 H Plt Count 255 Neut % (Auto) 83.0 H Lymph % (Auto) 11.0 L Harrison % (Auto) 5.3 Eos % (Auto) 0.1 L Baso % (Auto) 0.6 Neut # (Auto) 7400 H Lymph # (Auto) 1000 L Harrison # (Auto) 500 Eos # (Auto) 0 Baso # (Auto) 100 PT 14.4 H INR 1.3 APTT 39 H Sodium 135 L Potassium 4.0 Chloride 102 Carbon Dioxide 23 BUN 16 Creatinine 0.79 Estimated GFR > 60 BUN/Creatinine Ratio 20.3 Glucose 130 H Calcium 9.6 Magnesium 1.5 L Total Bilirubin 1.1 AST 23 ALT 19 Alkaline Phosphatase 67 Total Creatine Kinase < 20 L Troponin I < 0.012 NT-Pro-B Natriuret Pep 435 H Total Protein 7.0 Albumin 4.0 Globulin 3.0 Albumin/Globulin Ratio 1.3 Lipase 48 PFSH Medical History BMI 70 and over, adult Multiple pulmonary emboli (03/03/23) Pre-diabetes Depression Essential hypertension (06/25/16) Acquired hypothyroidism (01/10/17) Surgical History Hx of dilation and curettage (04/06/23) Status post tonsillectomy and adenoidectomy Family History Brother Age: 73 Frontal lobe dementia Mental health problem Depression Father Heart disease Alcoholic Grandfather Cancer Mother Age: 92 Hypertension Sister Cancer Social History household members: spouse Tobacco & Substance Use Smoking Status: Never smoker alcohol intake: current Assessment & Plan Assessment and plan (1) Hematoma: Status: Acute (2) Morbid obesity: Status: Acute (3) Pulmonary embolism: Qualifiers: Pulmonary embolism type: saddle Chronicity: acute Acute cor pulmonale presence: with acute cor pulmonale Qualified Code(s): I26.02 - Saddle embolus of pulmonary artery with acute cor pulmonale Status: Acute (4) Atrial fibrillation: Qualifiers: Atrial fibrillation type: persistent (not longstanding) Qualified Code(s): I48.19 - Other persistent atrial fibrillation Status: Acute Assessment & Plan narrative: We will take the patient for an evacuation and drain placement tomorrow. NPO at midnight, continue to hold Lovenox until we have adequate hemostasis. I expect her hemoglobin to drop after further fluid resuscitation, transfuse as necessary Time-Based Coding :: [TOTAL MINUTES] spent with patient and on the chart (including review of chart, obtaining history, exam, reviewing outside data, placing orders, documenting exam and treatment plan, and counseling patient) on [DATE]. PROFEE Charge Codes Inpatient or Observation consultation: 02990
[2024-07-09] MEDS: HYDROMORPHONE 0.5 MG INJ IV (21:35)
[2024-07-09] MEDS: ONDANSETRON 4 MG ODT PO (21:36)
[2024-07-09] MEDS: carvediloL 3.125 MG TABLET 6.25 MG PO (21:37)
[2024-07-10] VITALS (21 sets, daily range): BP systolic 81–139; BP diastolic 44–97; PULSE 93–140; RESP 13–18; TEMP 36.2–36.6; O2SAT 94–100; BMI 47.0
[2024-07-10] MEDS: HYDROMORPHONE 0.5 MG INJ IV ×2 (02:12→05:41)
[2024-07-10] MEDS: SODIUM CHLORIDE 0.9% 1,000 ML 100 ML IV ×2 (04:22→19:46)
[2024-07-10] MEDS: LEVOTHYROXINE 125 MCG TABLET PO (05:42)
[2024-07-10 06:18] LABS: Add Manual Diff / Slide Review NO; Basophils Absolute Auto 200 /uL (0-100); Eosinophils Absolute Auto 0 /uL (0-450); Eosinophils Percent Auto 0.3 % (2-4); Hematocrit 23.8 % (36-46); Hemoglobin 8.2 g/dL (12.0-16.0); Lymphocytes Absolute Auto 1700 /uL (1100-4500); Lymphocytes Percent Auto 19.5 % (25-40); Mean Corpuscular HGB Conc 34.3 % (30-36); Mean Corpuscular Hemoglobin 29.9 PG (26-34); Mean Corpuscular Volume 87.1 fL (80-100); Monocytes Absolute Auto 700 /uL (0-900); Monocytes Percent Auto 8.1 % (3-14); Neutrophils Absolute Auto 6200 /uL (1500-7000); Neutrophils Percent Auto 70.1 % (50-75); Platelet Count 193 X10^3/uL (150-400); Red Blood Cell Count 2.73 X10^6/uL (4.0-5.2); Red Cell Distribution Width 15.7 % (11.6-14.8); White Blood Cell Count 8.9 X10^3/uL (4.5-11.0)
--- NOTE | 2024-07-10 07:40 | PM.PREOP ---
Pre-operative Note Interval Note History & Physical reviewed/Exam performed by Physician: Yes Changes to H&P: No
--- NOTE | 2024-07-10 08:15 | SUR.HOLD ---
0750 stat type and screen drawn by [employer] start #22 left hand. 0750 - 2nd site drawn from right hand
[2024-07-10] MEDS: CEFAZOLIN 2 GM/100 ML PREMIX 100 ML IV (08:25)
--- NOTE | 2024-07-10 08:33 | SUR.OPER ---
Supine on padded OR bed, head on pillow, arms secured on padded arm boards at <90 degrees abduction, legs uncrossed, safety belt at thigh, tape over blanket over lower legs.
[2024-07-10] MEDS: BUPIVACAINE 0.25% W/ EPI 30 ML VIAL INJ (09:05)
[2024-07-10] MEDS: LIDOCAINE 1% 20 ML INJ (09:05)
--- NOTE | 2024-07-10 09:20 | P.OP_ITS ---
Operative Date/Time/Diagnoses Date of procedure: 07/10/24 Time of procedure: 09:20 Pre-op diagnosis: Abdominal wall hematoma Post-op diagnosis: same Procedure & Clinicians Procedure: Incision and drainage for evacuation of abdominal wall hematoma with drain placement Same procedure as scheduled: Yes Indications: Patient had a very large abdominal wall hematoma secondary to Lovenox anticoagulation, this was painful and unlikely to resorb on its own given the size Surgeon: Cruz Anderson Click Yes if Unassisted: Yes Anesthesia Type: MAC +/- Operative Notes Findings: Approximately 1900 mL of old blood and clot evacuated Closure Type: primary Specimen(s): none sent Applied: drain(s) (Nineteen Mauritian round drains placed) Estimated Blood Loss (mL): 10 Blood products transfused: packed red blood cells (2 units ordered preoperatively) Procedure in detail: Patient was brought to the operating room suite. Mac was induced. 40 mL of a mixture of 1% lidocaine with epi and 0.5% Marcaine plain were infiltrated over the largest area of the hematoma. Bovie electrocautery was used to make an incision through the skin, subcutaneous fat and Asa's fascia to identify the hematoma cavity. The hematoma cavity did not seem to extend into the rectus abdominis muscle. Suction irrigation and hydrogen peroxide was used to evacuate blood and clot, totalling with a 1900 mL. Two 19 Mauritian drains were placed in the inferior and lateral dependent portions of the hematoma. Asa's fascia was closed with 3-0 Vicryl. Skin was closed with 4-0 Monocryl. The wounds were dressed with gauze and tape. Complications: none Post-operative Condition: stable Disposition: PACU Plan for aftercare: continued hospital stay
[2024-07-10] MEDS: ACETAMINOPHEN 325 MG TABLET 650 MG PO (11:20)
[2024-07-10] MEDS: OXYCODONE IR 5 MG TABLET PO (11:21)
[2024-07-10] MEDS: FUROSEMIDE 40 MG TABLET PO (11:21)
--- NOTE | 2024-07-10 11:59 | PM.PN.IH.1 ---
Subjective Subjective Date Patient Seen: 07/10/24 Time Patient Seen: 09:00 Interval history: The pt this morning reports that overnight she continued to have some lightheadedness when the head of her bed was up further, but none when more prone. She denies any chest pain or SOB. She was out of surgery at the time of this encounter, and reported feeling overall well, just a little shaky. Exam Vital Signs (past 8 hours): - 07/10/24 06:00 07/10/24 09:14 07/10/24 09:21 Temperature 97.6 F 97.1 F L Pulse Rate 96 H 115 H 110 H Respiratory Rate 18 14 15 Blood Pressure 86/56 L 139/97 H 100/77 Pulse Oximetry 97 96 96 Oxygen Delivery Method Room Air Room Air Oxygen Flow Rate 0 07/10/24 09:26 07/10/24 09:31 07/10/24 09:32 Temperature 97.2 F L Pulse Rate 111 H 103 H 114 H Respiratory Rate 14 17 14 Blood Pressure 99/61 101/44 L Pulse Oximetry 100 100 Oxygen Delivery Method Room Air Room Air Oxygen Flow Rate 07/10/24 09:35 07/10/24 09:47 07/10/24 09:51 Temperature 97.6 F 97.4 F L 97.4 F L Pulse Rate 104 H 111 H 111 H Respiratory Rate 16 13 14 Blood Pressure 109/72 109/72 109/72 Pulse Oximetry 99 Oxygen Delivery Method Room Air Oxygen Flow Rate 07/10/24 10:01 07/10/24 10:07 07/10/24 11:21 Temperature Pulse Rate 106 H 97 H 101 H Respiratory Rate 13 13 Blood Pressure 100/66 107/64 90/69 Pulse Oximetry 100 100 Oxygen Delivery Method Room Air Room Air Oxygen Flow Rate Oxygen Delivery Method Room Air Oxygen Flow Rate 0 Narrative Exam Narrative: Gen: NAD, laying comfortably in bed CV: irregularly irregular rhythm, normal rate, no murmurs Resp: clear to auscultation bilaterally Abd: surgical drains in place Ext: 1+ pitting edema bilaterally Objective Labs 07/10/24 05:20 07/09/24 13:40 Labs: Laboratory Results - last 24 hr 07/09/24 07/10/24 07/10/24 13:40 05:20 08:05 WBC 9.0 8.9 RBC 3.93 L 2.73 L Hgb 11.5 L 8.2 L Hct 33.8 L 23.8 L MCV 85.9 87.1 MCH 29.2 29.9 MCHC 34.0 34.3 RDW 15.5 H 15.7 H Plt Count 255 193 Neut % (Auto) 83.0 H 70.1 Lymph % (Auto) 11.0 L 19.5 L Nelson % (Auto) 5.3 8.1 Eos % (Auto) 0.1 L 0.3 L Baso % (Auto) 0.6 2.0 Neut # (Auto) 7400 H 6200 Lymph # (Auto) 1000 L 1700 Nelson # (Auto) 500 700 Eos # (Auto) 0 0 Baso # (Auto) 100 200 H PT 14.4 H INR 1.3 APTT 39 H Sodium 135 L Potassium 4.0 Chloride 102 Carbon Dioxide 23 BUN 16 Creatinine 0.79 Estimated GFR > 60 BUN/Creatinine Ratio 20.3 Glucose 130 H Calcium 9.6 Magnesium 1.5 L Total Bilirubin 1.1 AST 23 ALT 19 Alkaline Phosphatase 67 Total Creatine Kinase < 20 L Troponin I < 0.012 NT-Pro-B Natriuret Pep 435 H Total Protein 7.0 Albumin 4.0 Globulin 3.0 Albumin/Globulin Ratio 1.3 Lipase 48 Blood Type A Positive Antibody Screen Negative Crossmatch See Detail [facility] Medical History BMI 70 and over, adult Multiple pulmonary emboli (03/03/23) Pre-diabetes Depression Essential hypertension (06/25/16) Acquired hypothyroidism (01/10/17) Surgical History Hx of dilation and curettage (04/06/23) Status post tonsillectomy and adenoidectomy Family History Brother Age: 73 Frontal lobe dementia Mental health problem Depression Father Heart disease Alcoholic Grandfather Cancer Mother Age: 92 Hypertension Sister Cancer Social History household members: spouse Smoking Status: Never smoker alcohol intake: current Assessment & Plan Assessment & Plan narrative: Pt is a 59yo woman with atrial fibrillation, hypertension, hypothyroidism, pre-diabetes, sleep apnea, and history of recurrent clots including PE who presented with lightheadedness and abdominal hematoma. 1) Intraabdominal hematoma: Very extensive measuring [id number] in the ED, however appears even larger in size now based on palpation. s/p evacuation this morning with 1900cc of blood/clot removed. - Surgery consulted, appreciate ongoing care - Will monitor for drain output 2) Acute blood loss anemia due to hematoma: Pt with significant drop in H/H overnight. Transfused 2 units PRBCs immediately postoperatively. - Continue to trend with CBC after transfusions, in the AM 3) Lightheadedness: Improved somewhat. Most likely due to blood loss into hematoma. - Continue telemetry - PT once pt mobile 4) Atrial fibrillation/Hx of recurrent clot: Followed by Hematology. On Lovenox due to history of new DVT while on Eliquis. - Hold anticoagulation - Contacted Dr Pierson regarding ongoing anticoagulation, awaiting call back - Continue Carvedilol for rate control. May need to hold due to relative hypotension. 5) Hypertension: BP borderline hypotensive - Monitor closely 6) Hypothyroidism: - Continue Levothyroxine 7) Sleep apnea: - Pts bringing CPAP from home DVT ppx: Holding anticoagulation currently due to bleeding, SCDs FEN: General diet Code: Full Dispo: Pending stabilization of H/H, ambulation without dizziness, etc. Time-Based Coding :: 40 spent with patient and on the chart (including review of chart, obtaining history, exam, reviewing outside data, placing orders, documenting exam and treatment plan, and counseling patient) on 07/10/24. PROFEE Software Test Engineer Document charge(s): Yes Charge Codes Subsequent inpatient/observation care: [id number]
--- NOTE | 2024-07-10 12:40 | DI.US.S_ITS ---
PROCEDURE: US PERIPH VENOUS LOW EXTREM LT INDICATIONS: f/u DVT TECHNIQUE: Real-time imaging, as well as color and pulse Doppler interrogation, were performed of the lower extremity deep veins from the inguinal ligament to the popliteal fossa, with documentation of the visualized calf veins. COMPARISON: [facility], US, US VENOUS LOWER EXTREMITY DOPPLER LEFT, 06/17/2024, 10:21. [facility], US, US PERIP VENOUS LOW EXTREM LT, 03/04/2024, 15:18. FINDINGS AND IMPRESSION: In the main femoral artery, there is partially occlusive thrombus similar to imaging from 06/17/2024. No new acute thrombus identified. Dictated by: Preston Kaba M.D. on 07/10/2024 at 15:35 Approved by: Preston Kaba M.D. on 07/10/2024 at 15:37
--- NOTE | 2024-07-10 12:41 | PT-IP ANOTE ---
Physical Therapy order received and chart reviewed. Pt underwent surgery this AM. Will hold evaluation at this time and plan to see her tomorrow.
[2024-07-10 13:21] LABS: Hematocrit 27.3 % (36-46); Hemoglobin 9.4 g/dL (12.0-16.0); Mean Corpuscular HGB Conc 34.5 % (30-36); Mean Corpuscular Hemoglobin 30.1 PG (26-34); Mean Corpuscular Volume 87.3 fL (80-100); Platelet Count 221 X10^3/uL (150-400); Red Blood Cell Count 3.12 X10^6/uL (4.0-5.2); Red Cell Distribution Width 15.9 % (11.6-14.8); White Blood Cell Count 10.6 X10^3/uL (4.5-11.0)
--- NOTE | 2024-07-10 15:05 | CM.DANOTE ---
Initial DCP Assessment Visit Note Reviewed EMR and team rounds for status updates. TOXICOLOGIST was unable to meet with pt f/f today due to unit triage needs. Pt resides independently in her own home with her . Her will also transport her home once she's medically stable for d/c, likely another 2-days. No CM d/c needs have been identified at this time. Payor: Jossy PCP: Dr. Gordon Pt is a 59 year-old F who presented to the ED with a large abdominal hematoma. She uses Lovenox injections regularly, and has had smaller hematomas in the past, but has been having decrease blood pressure, lightheadedness, and dizziness. Surgery evaluated and the plan was made to take her to the OR for drain placement. Pt did have a large amount of blood and a large clot drain immediately after the procedure. DCP will continue to follow for any further evolving needs, however none are anticipated at this time. 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 No History Provided By Medical Record Has Patient been admitted in last 30 No days? Household Members spouse Type of transporation used prior to Drives own vehicle admit Independent with ADL's Yes Is patient alert and oriented? Yes Comment N/A Caregiver for Another No Comment No identified needs for home d /c at this time. Barriers to Discharge No Discharge Plan Home Transportation Arrangement Spouse Referrals Initiated None needed Whiteboard Updated in Patient Room with Yes name and ext. # of Spinning Mule Operator Review Status In Process Please Provide Date Initial DC 07/10/24 Assessment Was Performed
[2024-07-11] VITALS (12 sets, daily range): BP systolic 89–169; BP diastolic 44–83; PULSE 81–109; RESP 14–18; TEMP 36.2–36.7; O2SAT 98–99
[2024-07-11] MEDS: ACETAMINOPHEN 325 MG TABLET 650 MG PO ×3 (02:08→15:48)
[2024-07-11 05:10] LABS: Add Manual Diff / Slide Review NO; Basophils Absolute Auto 100 /uL (0-100); Basophils Percent Auto 1.3 % (0-2); Eosinophils Absolute Auto 0 /uL (0-450); Eosinophils Percent Auto 0.6 % (2-4); Hematocrit 21.4 % (36-46); Hemoglobin 7.4 g/dL (12.0-16.0); Lymphocytes Absolute Auto 1700 /uL (1100-4500); Lymphocytes Percent Auto 22.9 % (25-40); Mean Corpuscular HGB Conc 34.8 % (30-36); Mean Corpuscular Hemoglobin 30.1 PG (26-34); Mean Corpuscular Volume 86.7 fL (80-100); Monocytes Absolute Auto 800 /uL (0-900); Neutrophils Absolute Auto 4800 /uL (1500-7000); Neutrophils Percent Auto 64.2 % (50-75); Platelet Count 188 X10^3/uL (150-400); Red Blood Cell Count 2.47 X10^6/uL (4.0-5.2); Red Cell Distribution Width 15.8 % (11.6-14.8); White Blood Cell Count 7.5 X10^3/uL (4.5-11.0)
[2024-07-11 05:27] LABS: Hemoglobin A1C% w Est Avg Glu 4.3 % (4.0-6.0)
[2024-07-11] MEDS: SODIUM CHLORIDE 0.9% 1,000 ML 100 ML IV (05:54)
[2024-07-11] MEDS: LEVOTHYROXINE 125 MCG TABLET PO (09:55)
--- NOTE | 2024-07-11 11:30 | PT.IIE ---
Current Diagnoses Morbid (severe) obesity due to excess calories (07/09/24) Saddle embolus of pulmonary artery with acute cor pulmonale (07/09/24) Other persistent atrial fibrillation (07/09/24) Other injury of unspecified body region, initial encounter (07/09/24) Surgery Performed Operation Date: 07/10/24 07:45 Actual Procedures p evacuation of abdominal wall hematoma(Not Applicable) - Cruz Anderson MD Surgical History (Last Reviewed 07/09/24 @ 18:30 by Cruz Anderson MD) Hx of dilation and curettage (04/06/23) Status post tonsillectomy and adenoidectomy Medical History (Last Reviewed 07/09/24 @ 18:30 by Cruz Anderson MD) Acquired hypothyroidism (01/10/17) BMI 70 and over, adult Depression Essential hypertension (06/25/16) Multiple pulmonary emboli (03/03/23) Pre-diabetes Physical Therapy Inpatient Evaluation/Re-Eval M1 PT/OT-IP Prior Functional Status Start: 07/11/24 12:46 Freq: NEEDED Status: Active Protocol: Document 07/11/24 11:30 AB (Rec: 07/11/24 13:04 AB [id number]) Medical Review Prior Functional Status Medical History Reviewed Yes Communication able to make needs known Mobility and Gait pt stated lillie she was independent with all mobilities and ambulation without AD Social History Household Members spouse Number of Floors (Floors) One Floor Number of Stairs To Enter/Railing? 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 has friends that might be able to help her when spouse is not around M2 PT-IP Current Condition Start: 07/11/24 12:46 Freq: NEEDED Status: Active Protocol: Document 07/11/24 11:30 AB (Rec: 07/11/24 13:04 AB [id number]) Physical Therapy Current Condition Current Condition Evaluation Date 07/11/24 Treatment Diagnosis s/p I&D abdominal wall hematoma; difficulty in walking Onset Date 07/09/24 M3 PT-IP Subjective Start: 07/11/24 12:46 Freq: NEEDED Status: Active Protocol: Document 07/11/24 11:30 AB (Rec: 07/11/24 13:04 AB [id number]) Subjective Physical Therapy Visit Type Type Initial Evaluation Visit Start Time 11:30 Visit Stop Time 12:00 Number of SERVICE STATION EQUIPMENT MECHANIC Visits 0 Physical Therapy Visit Comments Patient Comments agreeable to do PT; wants to sit get out of the bed Therapy Pain Assessment Pain When Pain Assessed During Mobility Pain Present Pain Present Pain Reported Location Left abdomen Scale Used pain scale not stated M4 PT-IP Mobility and Gait Start: 07/11/24 12:46 Freq: NEEDED Status: Active Protocol: Document 07/11/24 11:30 AB (Rec: 07/11/24 13:04 AB [id number]) PT-Bed Mobility Assessment Rolling Type of Rolling Log Rolling Level of Assist Minimal Assistance Supine to Sit Supine to Sit Minimal Assistance PT-Transfer Assessment Sit to and From Stand Sit to and from Stand Contact Guard Assistance,1 Person Assistance,Use of Upper Extremities Equipment Transfer Assistive Device Gait Belt,Front Wheeled Walker Orthotic/Prosthetic Devices or Brace: Yes Transfers Transfer Destination Chair Transfer Technique Stand Step Pivot Transfer Ability Level of Assist Contact Guard Assistance,1 Person Assistance,Use of Upper Extremities Comments Mobility Comments pt in bed and wants to get up. BP monitored. obtained PLOF and home set up. educated pt on abdominal precautions. BP in supine: 97/47. pt completed log roll supine to sit min A and cues. BP in sittin/66. sit to stand CGA and able to stand CGA using fWW for support. BP in standin/34. pt wants to sit up on the chair and step transfer to chair using fWW CGA. BP chekced: 113/59. positioned pt on the chair. call light and table placed within reach. post-op handout provided to pt . Gait Assessment Comments Gait Comments ambulation not completed due to decrease in BP in standing PT-Balance Assessment Sitting Balance and Reactions Static Sitting Balance Ability Normal Dynamic Sitting Balance Ability Good Standing Balance and Reactions Static Standing Balance Ability Good Dynamic Standing Balance Ability Fair Device Used FWW M5 PT-IP Objective Assessments Start: 07/11/24 12:46 Freq: NEEDED Status: Active Protocol: Document 07/11/24 11:30 AB (Rec: 07/11/24 13:04 AB [id number]) Orientation Orientation/Cognition Level of Alertness Alert Orientation Name,Age,Birthday,Month,Date, Year,Day of Week,Place, Situation Language Function Ability No Deficits Noted Safety Awareness Understands Safety Issues Memory Description No Deficits Noted Gross Range of Motion Lower Extremity ROM Assessment Within Functional Limits Strength Lower Extremity Strength Assessment Within Functional Limits Muscle Tone Muscle Tone WNL Yes M6 PT-IP Treatment Start: 07/11/24 12:46 Freq: NEEDED Status: Active Protocol: Document 07/11/24 11:30 AB (Rec: 07/11/24 13:04 AB [id number]) Physical Therapy Treatment Education Education Provided Precautions,Post-Op Packet, Safety M7 PT-IP Assessment and Plan Start: 07/11/24 12:46 Freq: NEEDED Status: Active Protocol: Document 07/11/24 11:30 AB (Rec: 07/11/24 13:04 AB [id number]) PT Summary Assessment and Plan Potential Rehabilitation Potential Good Status of Condition at Evaluation Evolving Summary Impairments Pain,ROM,Strength,Balance, Coordination,Sensation,Tone, Cognition,Bed Mobility, Transfers,Gait,Activity Tolerance Assessment Summary pt is a 59 y/o F s/p I&D of abdominal wall hematoma. pt with abdominal precautions. pt requiring min A with bed mobility, CGA for transfers using fWW. pt with decrease in BP in standing to 87/34. Ambulation not completed due to decrease in BP. Will continue to assess progress. Goals Bed Mobility Goal Independent Transfer Goal Independent,Front Wheeled Walker Gait Goal Independent,Front Wheel Walker Gait Distance 150 Other Goals improve transfers and ambulation using LRAD/without AD ~ 250 ft mod I up/down 4 steps R rail ascending and 2 steps L rail ascending mod I Days to Meet Goals 10 Frequency of Treatment Frequency Of Treatment Once a Day Treatment Plan Physical Therapy Treatment Plan Bed Mobility Training,Transfer Training,Gait Training, Therapeutic Exercise,Balance Retraining,Post Op Education, Discharge Planning,Hot or Cold Pack,Neuromuscular Re-ed, Coordination Retraining,Manual Therapy Precautions Abdominal Surgery Precautions Log Roll,Lifting Restrictions, Gait Belt above Incisional Area Other Precautions abdominal binder and 2 drains; BP Recommendations To Nursing Amount of Assist Needed 1 Person Assist Discharge Recommendations PT Discharge Recommendations Home with Assistance,Home Health,Outpatient PT Equipment Needed for Home Before FWW Discharge Transportation Needs at Discharge Private Vehicle,Wheelchair/ Cabulance - PT assist 1
--- NOTE | 2024-07-11 14:03 | PM.PNPO.1 ---
Subjective Subjective Date Patient Seen: 07/11/24 Time Patient Seen: 14:03 Interval history: Patient is postop from hematoma drainage on abdomen. Complains of dizziness and orthostatic when she gets up, otherwise pain is well-controlled and doing well Exam Vital Signs (past 8 hours): - 07/11/24 08:00 07/11/24 09:47 07/11/24 12:00 Temperature 97.7 F Pulse Rate 97 H 109 H Respiratory Rate 14 17 Blood Pressure 99/44 L 99/54 L 113/61 Pulse Oximetry 98 98 Oxygen Flow Rate 0 0 Oxygen Delivery Method Room Air Oxygen Flow Rate 0 Narrative Exam Narrative: alert and oriented x3, no acute distress pale abdominal binder in place CARLOS drain with sanguinous drainage as expected Const General: cooperative Objective Labs 07/11/24 04:56 07/09/24 13:40 Labs: Laboratory Results - last 24 hr 07/11/24 04:56 WBC 7.5 RBC 2.47 L Hgb 7.4 L Hct 21.4 L MCV 86.7 MCH 30.1 MCHC 34.8 RDW 15.8 H Plt Count 188 Neut % (Auto) 64.2 Lymph % (Auto) 22.9 L [place] % (Auto) 11.0 Eos % (Auto) 0.6 L Baso % (Auto) 1.3 Neut # (Auto) 4800 Lymph # (Auto) 1700 [place] # (Auto) 800 Eos # (Auto) 0 Baso # (Auto) 100 Hemoglobin A1c 4.3 PFSH Medical History BMI 70 and over, adult Multiple pulmonary emboli (03/03/23) Pre-diabetes Depression Essential hypertension (06/25/16) Acquired hypothyroidism (01/10/17) Surgical History Hx of dilation and curettage (04/06/23) Status post tonsillectomy and adenoidectomy Family History Brother Age: 73 Frontal lobe dementia Mental health problem Depression Father Heart disease Alcoholic Grandfather Cancer Mother Age: 92 Hypertension Sister Cancer Social History household members: spouse Smoking Status: Never smoker alcohol intake: current Assessment & Plan Post-op Postoperative Procedures: Procedures Operation Date: 07/10/24 07:45 Actual Procedure Side Surgeon p evacuation of abdominal wall hematoma Not Applicable Cruz Anderson MD Postoperative day: 1 Postoperative status: doing well and anemia Postoperative status narrative: patient doing well postop day 1 - continue abdominal binder - continue CARLOS drains to bulb suction, trend output - patient does seem to have symptomatic anemia, hemoglobin 7.4 but with orthostasis - we will recommend transfuse 1 unit packed red cells get an a.m. CBC - also recommend iron and vitamin-C supplementation for recovery from acute anemia Postoperative plan narrative: surgery will continue to follow Time Spent With Patient Time with patient: 15-24 minutes
--- NOTE | 2024-07-11 15:50 | P.PN_ITS ---
Subjective Subjective Date Patient Seen: 07/11/24 Time Patient Seen: 14:00 Interval history: The pt reports today that she continues to feel quite lightheaded with any ambulation, or sitting directly upright in bed. She has some abdominal pain, however does not want to take anything stronger than Tylenol due to concerns about it making her feel more lightheaded. She is urinating without difficulty, has not had a BM since Sunday. Exam Vital Signs (past 8 hours): - 07/11/24 08:00 07/11/24 09:47 07/11/24 12:00 Temperature 97.7 F Pulse Rate 97 H 109 H Respiratory Rate 14 17 Blood Pressure 99/44 L 99/54 L 113/61 Pulse Oximetry 98 98 Oxygen Flow Rate 0 0 Oxygen Delivery Method Room Air Oxygen Flow Rate 0 Narrative Exam Narrative: Gen: NAD, sitting comfortably in chair reclined CV: irregularly irregular rhythm, normal rate, no murmurs Resp: clear to auscultation bilaterally Abd: surgical drains in place, abdominal binder in place Ext: 1+ pitting edema bilaterally, stable from yesterday Objective Labs 07/11/24 04:56 07/09/24 13:40 Labs: Laboratory Results - last 24 hr 07/10/24 07/11/24 08:05 04:56 WBC 7.5 RBC 2.47 L Hgb 7.4 L Hct 21.4 L MCV 86.7 MCH 30.1 MCHC 34.8 RDW 15.8 H Plt Count 188 Neut % (Auto) 64.2 Lymph % (Auto) 22.9 L [place] % (Auto) 11.0 Eos % (Auto) 0.6 L Baso % (Auto) 1.3 Neut # (Auto) 4800 Lymph # (Auto) 1700 [place] # (Auto) 800 Eos # (Auto) 0 Baso # (Auto) 100 Hemoglobin A1c 4.3 Blood Type A Positive Antibody Screen Negative Crossmatch See Detail [facility] Medical History BMI 70 and over, adult Multiple pulmonary emboli (03/03/23) Pre-diabetes Depression Essential hypertension (06/25/16) Acquired hypothyroidism (01/10/17) Surgical History Hx of dilation and curettage (04/06/23) Status post tonsillectomy and adenoidectomy Family History Brother Age: 73 Frontal lobe dementia Mental health problem Depression Father Heart disease Alcoholic Grandfather Cancer Mother Age: 92 Hypertension Sister Cancer Social History household members: spouse Smoking Status: Never smoker alcohol intake: current Assessment & Plan Assessment & Plan narrative: Pt is a 59yo woman with atrial fibrillation, hypertension, hypothyroidism, pre- diabetes, sleep apnea, and history of recurrent clots including PE who presented with lightheadedness and abdominal hematoma. 1) Intraabdominal hematoma: POD#1 s/p evacuation this morning with 1900cc of blood/clot removed. - Surgery consulted, appreciate ongoing care - Will monitor for drain output 2) Acute blood loss anemia due to hematoma: Received 2 units PRBCs yesterday with good response. Drop in H/H overnight again, with ongoing symptoms. - Transfuse additional 2 units PRBCs - Iron supplement BID 3) Lightheadedness: Most likely due to blood loss into hematoma. [place] will improve once H/H stable - Continue telemetry - Continue PT 4) Atrial fibrillation/Hx of recurrent clot: Followed by Hematology. On Lovenox due to history of new DVT while on Eliquis. - Hold anticoagulation - Contacted Dr Pierson regarding ongoing anticoagulation - Recommend continuing to hold anticoagulation until f/u outpatient with him in the next week - Repeat LE doppler showed ongoing presence of clot, unchanged - Pt aware of risks of being off anticoagulation, however do believe risks of ongoing bleed outweigh these risks for now - Continue Carvedilol for rate control. Hold as needed for relative hypotension. 5) Hypertension: BP borderline hypotensive - Monitor closely 6) Hypothyroidism: - Continue Levothyroxine 7) Sleep apnea: - Pts bringing CPAP from home 8) Constipation: No BM since Sunday - Start Miralax BID DVT ppx: Holding anticoagulation currently due to bleeding, SCDs FEN: General diet Code: Full Dispo: Pending stabilization of H/H, ambulation without dizziness, etc. Time-Based Coding :: [TOTAL MINUTES] spent with patient and on the chart (including review of chart, obtaining history, exam, reviewing outside data, placing orders, documenting exam and treatment plan, and counseling patient) on [DATE]. [employer] Document charge(s): Yes Charge Codes Subsequent inpatient/observation care: [id number]
[2024-07-11] MEDS: FERROUS SULFATE 325 MG TABLET PO (17:31)
--- NOTE | 2024-07-11 17:31 | PC.NURSE ---
Pt sat up in chair several hours this afternoon. B/P 105/63 Recieving PRBC's for H/H 7.1/21.4 Med for discomfort w/good relief Call light w/in reach, pt calls appropriately for needs Continue w/plan of care.
[2024-07-11] MEDS: polyethylene glycoL 3350 17 GM POWD.PACK PO (21:04)
[2024-07-11] MEDS: carvediloL 3.125 MG TABLET 6.25 MG PO (21:04)
[2024-07-11] MEDS: ASCORBIC ACID 500 MG TABLET PO (21:04)
[2024-07-12 01:57] LABS: Hematocrit 23.6 % (36-46); Hemoglobin 8.3 g/dL (12.0-16.0)
[2024-07-12] MEDS: ACETAMINOPHEN 325 MG TABLET 650 MG PO (02:40)
[2024-07-12] MEDS: SODIUM CHLORIDE 0.9% 1,000 ML 100 ML IV (02:42)
[2024-07-12 03:00] VITALS: BP 88/49; PULSE 87; RESP 20; TEMP 36.4
[2024-07-12 05:13] LABS: Add Manual Diff / Slide Review NO; Basophils Absolute Auto 100 /uL (0-100); Basophils Percent Auto 1.7 % (0-2); Eosinophils Absolute Auto 200 /uL (0-450); Eosinophils Percent Auto 2.5 % (2-4); Hematocrit 23.7 % (36-46); Hemoglobin 8.3 g/dL (12.0-16.0); Lymphocytes Absolute Auto 1900 /uL (1100-4500); Lymphocytes Percent Auto 27.4 % (25-40); Mean Corpuscular HGB Conc 34.9 % (30-36); Mean Corpuscular Hemoglobin 30.5 PG (26-34); Mean Corpuscular Volume 87.4 fL (80-100); Monocytes Absolute Auto 600 /uL (0-900); Monocytes Percent Auto 8.4 % (3-14); Neutrophils Absolute Auto 4200 /uL (1500-7000); Platelet Count 173 X10^3/uL (150-400); Red Blood Cell Count 2.71 X10^6/uL (4.0-5.2); Red Cell Distribution Width 15.7 % (11.6-14.8)
[2024-07-12 05:23] VITALS: BP 100/53; PULSE 79; RESP 18; O2SAT 100
[2024-07-12] MEDS: LEVOTHYROXINE 125 MCG TABLET PO (05:31)
[2024-07-12 08:00] VITALS: BP 100/67; PULSE 78; RESP 16; TEMP 36.5; O2SAT 100
[2024-07-12] MEDS: FERROUS SULFATE 325 MG TABLET PO (08:25)
[2024-07-12] MEDS: ASCORBIC ACID 500 MG TABLET PO (08:25)
[2024-07-12 08:27] VITALS: BP 100/56; PULSE 78
--- NOTE | 2024-07-12 11:35 | P.DS_ITS ---
History of Present Illness History of Present Illness Date Patient Seen: 07/12/24 Time Patient Seen: 11:35 Date of Onset of Symptoms: 07/09/24 Chief complaint: lightheaded, HR running low, hx afib Narrative: Pt is a 59yo woman with atrial fibrillation, hypertension, hypothyroidism, pre- diabetes, sleep apnea, and history of recurrent clots including PE who presented with lightheadedness and abdominal hematoma. The pt reports that on 07/04 she developed a small abdominal hematoma at the site of a Lovenox injection. She has a history of abdominal hematomas from the Lovenox, however these were managed successfully conservatively with compression. This hematoma continued to very slowly enlarge. It was increasingly painful. Yesterday she noted that she started to feel more lightheaded, mainly when rising from the seated position. This morning the pt noted increased lightheadedness, even when seated. She took her HR and her pulse ox registered it in the 40s. Her BPs at home have been frequently in the low 100s. The pt noted that the abdominal hematoma had enlarged significantly overnight. She came to the ED for evaluation. Discharge Providers Provider Date of admission: 07/09/24 16:02 Discharge Date: 07/12/24 Primary care physician: Priya Gordon MD Consults: 07/09/24 18:19 Consult to General Surgery Routine Comment: Consulting Provider: Cruz Anderson Reason for consultation: abdominal hematoma Has provider been notified: Yes 07/10/24 12:16 Consult to Physical Therapy Evaluate & Treat Comment: Physician Instructions: Evaluate and Treat Discharge provider: Alex Minor MD Summary Hospital Course Discharge Diagnosis: abdominal wall hematoma acute blood loss anemia lightheadedness atrial fibrillation hypertension hypothyroidism sleep apnea Hospital Course: abdominal wall hematoma. Patient was admitted to the hospital with blood loss anemia and increasing pain with expanding hematoma. Patient had had these before but they had been easily contained. Consult was obtained with surgery who then took her to surgery on day 1. Extensive hematoma drained. Cautery was done and drains were placed. Drain seemed to be doing well with slow improvement. Minimal drainage. Patient was having less than 75 cc a 12 hour shift and discuss with surgery they feel as if it can be managed as an outpatient at this point since she is otherwise stable. They will see early next week and will follow from there. Anemia blood loss. secondary to abdominal wall hematoma. Which appears to be resolved. Patient was given 2 units on day 2 and 1 unit after surgery. She was started on iron and appears to be holding stable. She will need to be followed as an outpatient and CBC early this next week with follow-up with her PCP. Lightheadedness. Patient was lightheaded and deemed to be secondary to blood loss. And hypovolemia. She was given fluids and actually had improved. She then had treatment for her anemia and was given blood and on the day of discharge was up moving around with no dizziness whatsoever. She felt well and will continue on current therapy. History of DVT while on Eliquis. Patient is having no symptoms at this point but is a concerning situation. May need to consider [place] filter. Dr. Tre jenkins had discussed with her thermograph operator who recommend not starting any anticoagulation until he sees her next Sunday. And they will make plans from there. Patient understands. Will stay off her anticoagulation certainly bleeding risk is higher than other risks. She understands. Will follow. Atrial fibrillation. Patient actually has been in good control. With no issues. Patient has been taken off her anticoagulation due to bleeding risk. Will be addressed with her thermograph operator on Sunday Hypertension. Stable. Slightly elevated during her stay but no changes have been made she will be followed up with her usual PCP. Hypothyroidism. Stable. Continue usual dose of Synthroid. Sleep apnea no change in treatment will continue as per sleep specialist Exam Vital Signs (past 8 hours): - 07/12/24 05:23 07/12/24 08:00 07/12/24 08:27 Temperature 97.7 F Pulse Rate 79 78 78 Respiratory Rate 18 16 Blood Pressure 100/53 L 100/67 100/56 L Pulse Oximetry 100 100 Oxygen Flow Rate 0 0 Oxygen Delivery Method Room Air Oxygen Flow Rate 0 Narrative Exam Narrative: alert female lying in bed in no acute distress lungs heart irregular but well- controlled rate abdomen is soft positive bowel sounds incision is clean and dry extremities without significant edema Objective Labs 07/12/24 04:49 07/09/24 13:40 Labs: Laboratory Results - last 24 hr 07/10/24 07/11/24 07/12/24 08:05 17:38 01:46 WBC RBC Hgb 8.3 L Hct 23.6 L MCV MCH MCHC RDW Plt Count Neut % (Auto) Lymph % (Auto) [place] % (Auto) Eos % (Auto) Baso % (Auto) Neut # (Auto) Lymph # (Auto) [place] # (Auto) Eos # (Auto) Baso # (Auto) Acetaminophen < 10 Blood Type A Positive Antibody Screen Negative Crossmatch See Detail 07/12/24 04:49 WBC 7.0 RBC 2.71 L Hgb 8.3 L Hct 23.7 L MCV 87.4 MCH 30.5 MCHC 34.9 RDW 15.7 H Plt Count 173 Neut % (Auto) 60.0 Lymph % (Auto) 27.4 [place] % (Auto) 8.4 Eos % (Auto) 2.5 Baso % (Auto) 1.7 Neut # (Auto) 4200 Lymph # (Auto) 1900 [place] # (Auto) 600 Eos # (Auto) 200 Baso # (Auto) 100 Acetaminophen Blood Type Antibody Screen Crossmatch [facility] Medical History BMI 70 and over, adult Multiple pulmonary emboli (03/03/23) Pre-diabetes Depression Essential hypertension (06/25/16) Acquired hypothyroidism (01/10/17) Surgical History Hx of dilation and curettage (04/06/23) Status post tonsillectomy and adenoidectomy Family History Brother Age: 73 Frontal lobe dementia Mental health problem Depression Father Heart disease Alcoholic Grandfather Cancer Mother Age: 92 Hypertension Sister Cancer Social History household members: spouse Smoking Status: Never smoker alcohol intake: current Discharge Assessment & Plan Assessment and Plan Assessment: improved Plan of Treatment: discharge home Discharge Plan Discharge orders & Medications Discharge Orders: Discharge (Order); Ordered 07/12/24 Ordered By: Alex Minor Prescriptions: New ferrous sulfate 325 mg (65 mg iron) Tablet 325 mg PO BIDWM Qty: 60 1RF Continued nystatin 100,000 unit/gram ointment 1 applic topical BID Qty: 15 2RF carvedilol 6.25 mg tablet 6.25 mg PO BID Rx Instructions: must administer with a meal/food nystatin [Nyamyc] 100,000 unit/gram powder 1 applic topical DAILY Qty: 60 3RF levothyroxine 125 mcg tablet 125 mcg PO DAILY Qty: 90 0RF furosemide 40 mg Tablet 40 mg PO DAILY vitamin A-vitamin E 25,000-30 unit Capsule 25,000 cap PO QAM Discontinued enoxaparin [Lovenox] 150 mg/mL syringe 120 mg SUBCUT Q12H Follow up/Referrals: Ryan Stephens MD [Physician] - 3-5 Days ( call Sunday for appointment for drain management) Priya Gordon MD [Primary Care Provider] - 1 Week (* Appt on 07/18/2024 with at 3 pm. in the [facility] oncology clinic. [phone]) Discharge Health Status Multidrug resistant organism: No MDRO Diet/Activity/Treatments Diet: Diet as Tolerated Activity: as tolerated Other treatments: please teach drain management. Patient to keep diary of amounts from drains every 24 hours Skin/Wound/Dressing Care Report to your healthcare provider any signs of infection, such as:: chills, fever, night sweats and increased pain Dressing: please teach daily care of drains Visit Report/Discharge Packet Stand Alone Forms: Patient Portal/API, Stroke Signs & Symptoms Discharge Data Primary Care Provider: Priya Gordon
--- NOTE | 2024-07-12 13:01 | PC.NURSE ---
Pt sitting in chair, amb. to BR w/o incidence. Orders for D/C received. SL x 2 D/C'd intact. Tele D/C Pt teaching RE: CARLOS drains and measurement completed w/ understanding by Pt & spouse, Pt escorted by staff via W/C to waiting vehicle D/C in stable condition
--- NOTE | 2024-07-12 13:34 | CM.DPC ---
DCP Discharge Home Per MD, pt's labs improved and DVT ruled out and medically stable to d/c home today with outpt follow up. Per PT, recommending home with outpt PT and pt has supportive spouse who works and local friends to assist. Per RN, discharge instructions provided and spouse arrived for transport home and no concerns noted. SW updated TCM group on pt discharge and request for outpt f/u appointment with PCP Dr. Gordon in the next 10 days. REMINGTON Fallon
== END 2024-07-12 13:10 | disposition home or self-care (01) | DRG 988 ==
LOC: ED 14:56 → AC 07-10 06:59
PROVIDERS: Surgery; Admitting Provider Family Medicine; Emergency Provider Emergency Medicine; PCP Family Medicine; Referring Provider Emergency Medicine; Visit Provider Family Medicine
PROC: 0JC80ZZ Extirpation of Matter from Abdomen Subcutaneous Tissue and Fascia, Open Approach (ICD-10-PCS; principal; 2024-07-10 07:45)
DX: M79.81 Nontraumatic hematoma of soft tissue (principal); D62 Acute posthemorrhagic anemia; Z68.42 Body mass index [BMI] 45.0-49.9, adult; I10 Essential (primary) hypertension; E03.9 Hypothyroidism, unspecified; G47.30 Sleep apnea, unspecified; E66.01 Morbid (severe) obesity due to excess calories; K59.00 Constipation, unspecified; E86.1 Hypovolemia; T45.515A Adverse effect of anticoagulants, initial encounter; I48.91 Unspecified atrial fibrillation; Z86.718 Personal history of other venous thrombosis and embolism; Z79.01 Long term (current) use of anticoagulants; Z79.890 Hormone replacement therapy; Z86.711 Personal history of pulmonary embolism; Z88.0 Allergy status to penicillin
CPT/HCPCS: 36415; 36430; 71045; 74177; 80053; 80329; 82550; 83036; 83690; 83735; 83880; 84484; 85014; 85018; 85025; 85027; 85610; 85730; 86850; 86900; 86901; 93005; 93971; 97162; 97530; 99284; P9016; G0480; J0690; J1171; J2250; J2405; J2704; J3010; Q9967

== ENCOUNTER → 2024-07-16 08:49 | Outpatient (CLI) | payer OTHER, SELFPAY ==
[2024-07-09 17:06] VITALS: BMI 47.0
[2024-07-16 09:33] LABS: Hematocrit 30.7 % (36-46); Hemoglobin 10.3 g/dL (12.0-16.0); Mean Corpuscular HGB Conc 33.5 % (30-36); Mean Corpuscular Hemoglobin 30.1 PG (26-34); Mean Corpuscular Volume 89.6 fL (80-100); Platelet Count 422 X10^3/uL (150-400); Red Blood Cell Count 3.43 X10^6/uL (4.0-5.2); Red Cell Distribution Width 16.4 % (11.6-14.8)
[2024-07-16 09:35] LABS: Add Manual Diff / Slide Review YES
[2024-07-16 09:47] LABS: Anisocytosis 1+; Neutrophils Absolute Manual 5670 /uL (3000-5900); Total Cells Counted 100
[2024-07-16 09:48] LABS: HEMOLYSIS < 15 (0-50); Iron 54 ug/dL (37-170)
[2024-07-16 09:49] LABS: Alanine Aminotransferase 16 IU/L (<35); Albumin 3.3 g/dL (3.5-5.0); Albumin Globulin Ratio 1.3 (1.0-2.8); Alkaline Phosphatase 71 U/L (38-126); Aspartate Aminotransferase 23 IU/L (14-36); BUN Creatinine Ratio 18.6 (6-22); Bilirubin Total 1.7 mg/dL (0.2-1.3); Blood Urea Nitrogen 11 mg/dL (7-17); Calcium 9.3 mg/dL (8.4-10.2); Carbon Dioxide 26 mmol/L (22-32); Chloride 104 mmol/L (98-107); Estimated Glomerular Filt Rate > 60 mL/min (>60); Globulin 2.5 g/dL (1.7-4.1); Glucose 102 mg/dL (80-110); HEMOLYSIS < 15 (0-50); Potassium 3.6 mmol/L (3.4-5.1); Sodium 138 mmol/L (137-145); Total Protein 5.8 g/dL (6.3-8.2)
[2024-07-16 09:59] LABS: Percent Iron Saturation 20 % (15-50); Total Iron Binding Capacity 270 ug/dL (265-497); Transferrin 205 mg/dL (206-381)
[2024-07-16 10:22] LABS: Thyroid Stimulating Hormone 0.822 uIU/mL (0.47-4.68)
== END ==
PROVIDERS: PCP Family Medicine; Referring Provider Family Medicine; Visit Provider Family Medicine
DX: T14.8XXA Other injury of unspecified body region, initial encounter (principal); E03.9 Hypothyroidism, unspecified; I48.91 Unspecified atrial fibrillation
CPT/HCPCS: 36415; 80053; 83540; 83550; 84443; 85007; 85025

== ENCOUNTER → 2024-07-18 17:10 | Outpatient (CLI) | payer OTHER, SELFPAY ==
[2024-07-09 17:06] VITALS: BMI 47.0
[2024-07-21 12:08] LABS: Fecal Immunochemical Test Negative (Negative)
== END ==
PROVIDERS: PCP Family Medicine; Referring Provider Family Medicine; Visit Provider Family Medicine
DX: Z12.11 Encounter for screening for malignant neoplasm of colon (principal)
CPT/HCPCS: 82274